=== PATIENT | female | born 1950 | race Caucasian/White ===

== ENCOUNTER → 2018-03-22 15:10 | Outpatient (CLI) | payer OTHER, SELFPAY ==
--- NOTE | 2018-03-22 15:12 | DI.MG.S_ITS ---
BILATERAL DIGITAL SCREENING MAMMOGRAM 3D/2D WITH CAD: 03/22/2018 CLINICAL: Routine screening. Comparison is made to exams dated: 08/26/2013 mammogram and 08/03/2012 mammogram - [facility]. There are scattered fibroglandular elements in both breasts. Current study was also evaluated with a Computer Aided Detection (CAD) system. No significant masses, calcifications, or other findings are seen in either breast. There has been no significant interval change. IMPRESSION: NEGATIVE There is no mammographic evidence of malignancy. A 1 year screening mammogram is recommended. This exam was interpreted at Station ID: [id number]. NOTE: For mammograms, a report in lay terms will be sent to the patient. Approximately 15% of breast malignancies will not be visualized mammographically. In the management of a palpable breast mass, a negative mammogram must not discourage biopsy of a clinically suspicious lesion. Electronically Signed By: Zach leal/javier:03/22/2018 16:34:13 letter sent: Normal Exam ACR BI-RADS Category 1: Negative [id number]
== END ==
PROVIDERS: PCP Physician Assistant; Visit Provider Physician Assistant
DX: Z12.31 Encounter for screening mammogram for malignant neoplasm of breast (principal)
CPT/HCPCS: 77063; 77067

== ENCOUNTER → 2018-05-14 10:21 | Outpatient (CLI) | payer OTHER, SELFPAY ==
[2018-05-14 10:48] LABS: Add Manual Diff / Slide Review NO; Basophils Percent Auto 0.9 % (0-2); Eosinophils Percent Auto 0.7 % (2-4); Hemoglobin 13.7 g/dL (12.0-16.0); Lymphocytes Percent Auto 46.8 % (25-40); Mean Corpuscular HGB Conc 34.4 % (30-36); Mean Corpuscular Volume 87.4 fL (80-100); Monocytes Percent Auto 8.8 % (3-14); Neutrophils Absolute Auto 1100 /uL (3000-5900); Neutrophils Percent Auto 42.8 % (50-75); Platelet Count 210 X10^3/uL (150-400); Red Blood Cell Count 4.57 X10^6/uL (4.0-5.2); Red Cell Distribution Width 13.3 % (11.6-14.8); White Blood Cell Count 2.6 X10^3/uL (4.5-11.0)
[2018-05-14 11:24] LABS: Alanine Aminotransferase 15 IU/L (9-52); Albumin 4.4 g/dL (3.5-5.0); Albumin Globulin Ratio 1.6 (1.0-2.8); Alkaline Phosphatase 74 U/L (38-126); Aspartate Aminotransferase 21 IU/L (14-36); BUN Creatinine Ratio 18.6 (6-22); Bilirubin Total 0.9 mg/dL (0.2-1.3); Blood Urea Nitrogen 13 mg/dL (7-17); Calcium 9.6 mg/dL (8.4-10.2); Carbon Dioxide 28 mmol/L (22-32); Chloride 105 mmol/L (98-107); Estimated Glomerular Filt Rate > 60.0 mL/min (>60); Globulin 2.8 g/dL (1.7-4.1); Glucose 104 mg/dL (80-110); HEMOLYSIS < 15 (0-50); Potassium 4.2 mmol/L (3.4-5.1); Sodium 144 mmol/L (137-145); Total Protein 7.2 g/dL (6.3-8.2)
[2018-05-14 11:25] LABS: C-Reactive Protein Quant < 0.5 mg/dL (<1.0)
[2018-05-14 11:30] LABS: Free T3, Triiodothyronine Free 6.35 pg/mL (2.77-5.27); Free T4, Direct Thyroxine 0.93 ng/dL (0.78-2.19)
[2018-05-14 11:43] LABS: Thyroid Stimulating Hormone < 0.02 uIU/mL (0.47-4.68)
[2018-05-14 11:44] LABS: TSH w/ Reflex to FT4 < 0.02 uIU/mL (0.47-4.68)
[2018-05-15 15:02] LABS: Thyroid Peroxidase Antibodies < 1 IU/mL (< 9)
== END ==
PROVIDERS: PCP Physician Assistant; Visit Provider Nurse Practitioner Family
DX: E07.9 Disorder of thyroid, unspecified (principal)
CPT/HCPCS: 36415; 80053; 84439; 84443; 84481; 85025; 86140; 86376

== ENCOUNTER 2018-07-19 10:26 | Emergency (ER) | payer OTHER, SELFPAY ==
[2018-07-19 10:30] VITALS: PULSE 88; RESP 18; O2SAT 99
[2018-07-19 11:31] LABS: Add Manual Diff / Slide Review NO; Basophils Percent Auto 1.2 % (0-2); Eosinophils Percent Auto 0.6 % (2-4); Hematocrit 40.6 % (36-46); Hemoglobin 13.7 g/dL (12.0-16.0); Lymphocytes Percent Auto 49.7 % (25-40); Mean Corpuscular HGB Conc 33.7 % (30-36); Mean Corpuscular Hemoglobin 29.4 PG (26-34); Mean Corpuscular Volume 87.2 fL (80-100); Monocytes Percent Auto 7.8 % (3-14); Neutrophils Absolute Auto 1300 /uL (3000-5900); Neutrophils Percent Auto 40.7 % (50-75); Platelet Count 209 X10^3/uL (150-400); Red Blood Cell Count 4.66 X10^6/uL (4.0-5.2); Red Cell Distribution Width 13.9 % (11.6-14.8); White Blood Cell Count 3.2 X10^3/uL (4.5-11.0)
[2018-07-19] MEDS: SODIUM CHLORIDE 0.9% 1,000 ML 150 ML IV (11:41)
[2018-07-19 11:46] LABS: Alanine Aminotransferase 20 IU/L (9-52); Albumin 4.6 g/dL (3.5-5.0); Albumin Globulin Ratio 1.7 (1.0-2.8); Alkaline Phosphatase 81 U/L (38-126); Aspartate Aminotransferase 22 IU/L (14-36); BUN Creatinine Ratio 22.9 (6-22); Bilirubin Total 0.7 mg/dL (0.2-1.3); Blood Urea Nitrogen 16 mg/dL (7-17); Calcium 9.3 mg/dL (8.4-10.2); Carbon Dioxide 27 mmol/L (22-32); Chloride 104 mmol/L (98-107); Estimated Glomerular Filt Rate > 60.0 mL/min (>60); Globulin 2.7 g/dL (1.7-4.1); Glucose 99 mg/dL (80-110); HEMOLYSIS < 15 (0-50); Lipase 87 U/L (23-300); Sodium 142 mmol/L (137-145); Total Protein 7.3 g/dL (6.3-8.2)
[2018-07-19 11:51] LABS: Appearance Urine UA TURBID; Bilirubin Urine UA NEGATIVE (NEGATIVE); Color Urine UA RED; Glucose Urine UA TRACE g/dL (Normal); Ketones Urine UA TRACE (NEGATIVE); Leukocyte Esterase Urine UA TRACE (NEGATIVE); Nitrite Urine UA POSITIVE (Negative); Occult Blood Urine UA 3+ (Negative); Protein Urine UA 2+ (Negative); Specific Gravity Urine UA 1.015 (1.000-1.035)
[2018-07-19 12:00] LABS: Bacteria Urine Many (>30); Culture Indicated Urine Specimen Cultured; RBC Urine 30-100/HPF (0-5/HPF); WBC Urine 30-100/HPF (0-5/HPF)
--- NOTE | 2018-07-19 12:06 | ED.ABDPAIN ---
HPI - Abdominal Pain General Chief Complaint: Abdominal Pain Stated Complaint: pain in bladder/cervix Time Seen by Provider: 07/19/18 12:04 Source: patient Mode of arrival: ambulatory Limitations: no limitations History of Present Illness HPI narrative: Patient is a 68-year-old female who presents with right flank pain and hematuria. It started today it comes in waves sharp and stabbing. No history of kidney stone. She denies nausea or fever. No urinary frequency. Related Data Home Medications Medication Instructions Recorded Confirmed cholecalciferol (vitamin D3) 5,000 unit PO DAILY 07/19/18 07/19/18 [Vitamin D3] lorazepam 0.5 mg PO DAILY 07/19/18 07/19/18 multivitamin 1 tab PO DAILY 07/19/18 07/19/18 paroxetine HCl 37.5 mg PO DAILY 07/19/18 07/19/18 Previous Rx's Medication Instructions Recorded thyroid (pork) 90 mg tablet 90 mg PO DAILY #30 tab 07/07/18 hydrocodone-acetaminophen [Independence] 1 tab PO Q6H PRN #10 tab 07/19/18 ondansetron 4 mg PO Q6-8H PRN #10 tab 07/19/18 sulfamethoxazole-trimethoprim 1 tab PO BID #14 tab 07/19/18 [Bactrim DS] Allergies Allergy/AdvReac Type Severity Reaction Status Date / Time simvastatin [SIMVASTATIN] Allergy Unknown nuscle Verified 07/19/18 10:30 aches Review of Systems Review of Systems GENERAL: Denies chills, fatigue, malaise, fever, sweats, travel HEENT: Denies sinus pain, ear pain, sore throat, difficulty swallowing, neck pain RESPIRATORY: Denies dyspnea, cough, wheezing, hemoptysis, sputum. CARDIOVASCULAR: Denies chest pain, palpitations, orthopnea, edema GASTROINTESTINAL: See HPI : See HPI MUSCULOSKELETAL: Denies weakness, joint pain, or bony pain SKIN: No rash, no erythema, no pruritus NEUROLOGIC: Denies weakness, dizziness, headache, numbness, change in speech, confusion PSYCHIATRIC: No concerning psychosocial issues. 12 point review of systems is negative except for those stated above and HPI PFSH Medical History Hypothyroid (Acute) Social History Smoking Status: Never smoker alcohol intake: current (occasionally) Exam Initial Vital Signs Initial Vital Signs: Vital Signs Pulse Rate 88 07/19/18 10:30 Respiratory Rate 18 07/19/18 10:30 Pulse Oximetry 99 07/19/18 10:30 GENERAL: Appears in pain holding right flank HEENT: Head atraumatic,EOMI, pupils reactive CARDIOVASCULAR: Regular rate and rhythm without murmurs, rubs or gallops. RESPIRATORY: Breath sounds equal bilaterally, no wheezes rales or rhonchi. ABDOMEN: Soft, nontender. Normoactive bowel sounds all 4 quadrants. No guarding or rebound. : CVA tenderness on the right mild EXTREMITIES: Normal range of motion, no clubbing or edema. Neurovascularly intact NEUROLOGICAL: Alert and oriented x4.Normal gait and speech. Cranial nerves II through XII grossly intact. SKIN: Warm, dry, no laceration, no petechiae, no rashes or lesions. Course Orders Ordered: ED Orders 07/19/18 12:22 CT kidney ureter bladder (KUB) Stat Discontinued Medications Sodium Chloride (Normal Saline 0.9%) 1,000 mls @ 150 mls/hr IV CONT RJ Last Infusion: 07/19/18 14:27 Dose: 0 mls/hr Admin: 07/19/18 11:41 Dose: 150 mls/hr Ketorolac Tromethamine (Toradol) 30 mg IV NOW ONE Stop: 07/19/18 12:05 Last Admin: 07/19/18 12:07 Dose: 30 mg Morphine Sulfate (Morphine) 2 mg IV NOW ONE Stop: 07/19/18 13:40 Last Admin: 07/19/18 14:14 Dose: Not Given Vital Signs - 8 hr 07/19/18 13:19 07/19/18 14:26 Pulse Rate 62 62 Respiratory Rate 13 Blood Pressure 114/76 Blood Pressure [Left Arm] 115/56 L Pulse Oximetry 97 100 MDM - Abdominal Pain Lab Data Attestation: I reviewed the patient's lab results. Result diagrams: 07/19/18 11:23 07/19/18 11:23 Lab Results 07/19/18 07/19/18 07/19/18 Range/Units 11:23 11:23 11:26 WBC 3.2 L (4.5-11.0) X10^3/uL RBC 4.66 (4.0-5.2) X10^6/uL Hgb 13.7 (12.0-16.0) g/dL Hct 40.6 (36-46) % MCV 87.2 (80-100) fL MCH 29.4 (26-34) PG MCHC 33.7 (30-36) % RDW 13.9 (11.6-14.8) % Plt Count 209 (150-400) X10^3/uL Neut % (Auto) 40.7 L (50-75) % Lymph % (Auto) 49.7 H (25-40) % Sheridan % (Auto) 7.8 (3-14) % Eos % (Auto) 0.6 L (2-4) % Baso % (Auto) 1.2 (0-2) % Neut # (Auto) 1300 L (8863-1671) /uL Sodium 142 (137-145) mmol/L Potassium 4.0 (3.4-5.1) mmol/L Chloride 104 (98-107) mmol/L Carbon Dioxide 27 (22-32) mmol/L BUN 16 (7-17) mg/dL Creatinine 0.70 (0.52-1.04) mg/dL Estimated GFR > 60.0 (>60) mL/min BUN/Creatinine Ratio 22.9 H (6-22) Glucose 99 (80-110) mg/dL Calcium 9.3 (8.4-10.2) mg/dL Total Bilirubin 0.7 (0.2-1.3) mg/dL AST 22 (14-36) IU/L ALT 20 (9-52) IU/L Alkaline Phosphatase 81 (38-126) U/L Total Protein 7.3 (6.3-8.2) g/dL Albumin 4.6 (3.5-5.0) g/dL Globulin 2.7 (1.7-4.1) g/dL Albumin/Globulin Ratio 1.7 (1.0-2.8) Lipase 87 (23-300) U/L Urine Color Red Urine Appearance Turbid Urine pH 7.0 (4.5-8.0) Ur Specific Kellogg 1.015 (1.000-1.035) Urine Protein 2+ H (Negative) Urine Glucose (UA) Trace (Normal) g/dL Urine Ketones Trace H (NEGATIVE) Urine Occult Blood 3+ H (Negative) Urine Nitrate Positive H (Negative) Urine Bilirubin Negative (NEGATIVE) Urine Urobilinogen 1.0 (0.2) E.U./dL Ur Leukocyte Esterase Trace H (NEGATIVE) Urine RBC 30-100/hpf H (0-5/HPF) Urine WBC 30-100/hpf H (0-5/HPF) Urine Bacteria Many (>30) H (None) Ur Culture Indicated? Specimen cultured Micro UA Comment Not Reportable Imaging Data CT scan - abdomen: Radiologist's impression: PROCEDURE: CT KIDNEY URETER BLADDER (KUB) INDICATIONS: right flank pain TECHNIQUE: Noncontrast 5 mm thick sections acquired from the diaphragms to the symphysis. 5 mm thick coronal and sagittal reformats were then performed. For radiation dose reduction, the following was used: automated exposure control, adjustment of mA and/or kV according to patient size. COMPARISON: [facility], CT, THORAX WITH CONTRAST, 05/20/2016, 8:37. Outside Facility, , CT THORAX W/O CONTRAST, 11/20/2015, 16:25. FINDINGS: Image quality: Diagnostic. Lung bases: Mild scar versus atelectasis within the lingula is less prominent on the current study, compared to the previous exam. Otherwise, the image lung bases are clear. Heart is normal in size without a pericardial effusion. Urinary system: There is a 3 x 3 x 4 mm calculus present within the distal right ureter at the vesicoureteral junction (image 80, series 2). There is mild to moderate hydronephrosis and hydroureter on the right. No additional nonobstructing renal or ureteral calculi are appreciated. The bladder is decompressed and subsequently not well evaluated. However, there is thickening of the urinary bladder wall. Other solid organs: Liver is normal in size. Gallbladder does not appear to be enlarged or inflamed. Pancreas is normal in contours. Spleen is normal in size. No adrenal nodules. Peritoneum and bowel: There is mild prominence of the wall of the distal esophagus. The stomach and duodenum are unremarkable. The small bowel loops do not appear to be dilated. A moderate to large amount of residual stool seen within the colon. No free fluid or loculated fluid collection is seen within the abdomen. There may be a very small fat containing periumbilical hernia. Nodes and vessels: No retroperitoneal or mesenteric adenopathy by size criteria. Aorta and inferior vena cava are normal in caliber. Abdominal wall: No ventral hernias. Other pelvic soft tissues: There is a large probable partly septated cyst identified with questionable mural nodularity involving the left adnexa, which measures 10.4 x 5.8 x 7.7 cm. Peripheral calcifications are present. A small cyst on the right ovary is evident. The uterus is not enlarged. There appears to be fat containing left inguinal hernia. No free fluid is evident. No adenopathy is identified. Age-appropriate degenerative changes of the mid spine and pelvic drains are present. Bones: No suspicious bony lesions. No vertebral body compression fractures. IMPRESSION: 1. 4 mm, at least partially obstructing distal right ureteral calculus with associated mild to moderate hydroureter and hydronephrosis. 2. Large left adnexal cystic mass suspicious for ovarian neoplasm. Pelvic ultrasound is recommended for further evaluation. 3. Probable colonic constipation. 4. Small fat containing left in the hernia. Dictated by: Rei Nur M.D. on 07/19/2018 at 12:07 MDM Narrative Medical decision making narrative: Patient's pain improved after Toradol. CT confirms 4 mm stone. Also does show a concerning all left ovarian cyst. She has no pain on the left lower quadrant. A I discussed findings of CT with her and her and recommended outpatient follow-up. At this time deal with acute kidney stone. Morphine does seem to help more with her pain. Discharge Plan Departure Patient Disposition: Home Clinical Impression: Kidney stone on right side, UTI (urinary tract infection) Discharge Date/Time: 07/19/18 14:27 Interventions: ED Discharge Assessment Last Done: 07/19/18 14:26 Instructions: DI for Kidney Stones Activity Restrictions/Additional Instructions: YOU HAVE A LARGE LEFT OVARIAN MASS WHICH NEEDS FURTHER EVALUATION SUCH ULTRASOUND SOON POSSIBLE *Increase fluid intake *Call primary care provider office tomorrow, to schedule follow-up appointment. You may require urology referral Strain urine, try to catch stone -If you should have fever, or pain is uncontrolled with medication at home or any other concerning symptoms return to ER for further evaluation MEDICATIONS: FAX TO [facility] Take Motrin 800 mg every 8 hours as needed for pain Take Independence every 6 hours if needed for severe pain Take Zofran every 4-6 hours if needed for nausea Take Bactrim 1 tablet twice a day for 7 days for bladder infection CONTROLLED SUBSTANCE DISCHARGE (Narcotoic/benzodiazepine) 1. You have been prescribed narcotic medications, it does have acetaminophen/Tylenol/paracetamol in it so do not take extra Tylenol or Tylenol containing products 2. Please understand that we cannot provide further refills of narcotics, benzodiazepines or controlled substances through the ED and her pain management will need to be through your provider. 3. While on these medications you cannot drive or operate heavy machinery. 4. You cannot sign legal documents or perform any duties such as this. 5. As long as you're taking opiate pain medications he should also be taking a stool softener such as Colace, Dulcolax, MiraLAX or prune juice, to help avoid constipation. Prescriptions: New hydrocodone-acetaminophen [Independence] 5-325 mg tablet 1 tab PO Q6H PRN (Reason: pain) Qty: 10 RF: 0 sulfamethoxazole-trimethoprim [Bactrim DS] 800-160 mg tablet 1 tab PO BID Qty: 14 RF: 0 ondansetron 4 mg tablet,disintegrating 4 mg PO Q6-8H PRN (Reason: nausea and vomiting) Qty: 10 RF: 0 No Action thyroid (pork) [DENTAL PRACTITIONER Thyroid] 90 mg tablet 90 mg PO DAILY Qty: 30 RF: 0 lorazepam 0.5 mg tablet 0.5 mg PO DAILY RF: 0 paroxetine HCl 37.5 mg tablet extended release 24 hr 37.5 mg PO DAILY RF: 0 multivitamin Tablet 1 tab PO DAILY RF: 0 cholecalciferol (vitamin D3) [Vitamin D3] 5,000 unit Tablet 5,000 unit PO DAILY RF: 0 Referrals: Paula Melvin PA-C [Primary Care Provider] -
[2018-07-19] MEDS: KETOROLAC 60 MG/2 ML VIAL 30 MG IV (12:07)
[2018-07-19 12:15] VITALS: BP 124/76; PULSE 65; RESP 12; TEMP 36.3; O2SAT 98
--- NOTE | 2018-07-19 12:22 | DI.CT.S_ITS ---
PROCEDURE: CT KIDNEY URETER BLADDER (KUB) INDICATIONS: right flank pain TECHNIQUE: Noncontrast 5 mm thick sections acquired from the diaphragms to the symphysis. 5 mm thick coronal and sagittal reformats were then performed. For radiation dose reduction, the following was used: automated exposure control, adjustment of mA and/or kV according to patient size. COMPARISON: [facility], CT, THORAX WITH CONTRAST, 05/20/2016, 8:37. Outside Facility, , CT THORAX W/O CONTRAST, 11/20/2015, 16:25. FINDINGS: Image quality: Diagnostic. Lung bases: Mild scar versus atelectasis within the lingula is less prominent on the current study, compared to the previous exam. Otherwise, the image lung bases are clear. Heart is normal in size without a pericardial effusion. Urinary system: There is a 3 x 3 x 4 mm calculus present within the distal right ureter at the vesicoureteral junction (image 80, series 2). There is mild to moderate hydronephrosis and hydroureter on the right. No additional nonobstructing renal or ureteral calculi are appreciated. The bladder is decompressed and subsequently not well evaluated. However, there is thickening of the urinary bladder wall. Other solid organs: Liver is normal in size. Gallbladder does not appear to be enlarged or inflamed. Pancreas is normal in contours. Spleen is normal in size. No adrenal nodules. Peritoneum and bowel: There is mild prominence of the wall of the distal esophagus. The stomach and duodenum are unremarkable. The small bowel loops do not appear to be dilated. A moderate to large amount of residual stool seen within the colon. No free fluid or loculated fluid collection is seen within the abdomen. There may be a very small fat containing periumbilical hernia. Nodes and vessels: No retroperitoneal or mesenteric adenopathy by size criteria. Aorta and inferior vena cava are normal in caliber. Abdominal wall: No ventral hernias. Other pelvic soft tissues: There is a large probable partly septated cyst identified with questionable mural nodularity involving the left adnexa, which measures 10.4 x 5.8 x 7.7 cm. Peripheral calcifications are present. A small cyst on the right ovary is evident. The uterus is not enlarged. There appears to be fat containing left inguinal hernia. No free fluid is evident. No adenopathy is identified. Age-appropriate degenerative changes of the mid spine and pelvic drains are present. Bones: No suspicious bony lesions. No vertebral body compression fractures. IMPRESSION: 1. 4 mm, at least partially obstructing distal right ureteral calculus with associated mild to moderate hydroureter and hydronephrosis. 2. Large left adnexal cystic mass suspicious for ovarian neoplasm. Pelvic ultrasound is recommended for further evaluation. 3. Probable colonic constipation. 4. Small fat containing left in the hernia. Dictated by: Rei Nur M.D. on 07/19/2018 at 12:07 Approved by: Rei Nur M.D. on 07/19/2018 at 12:13
[2018-07-19 13:19] VITALS: BP 115/56; PULSE 62; O2SAT 97
[2018-07-19 14:26] VITALS: BP 114/76; PULSE 62; RESP 13; O2SAT 100
== END 2018-07-19 14:27 | disposition home or self-care (01) ==
PROVIDERS: Emergency Provider Emergency Medicine; PCP Physician Assistant
DX: N20.0 Calculus of kidney (principal); N39.0 Urinary tract infection, site not specified
CPT/HCPCS: 36591; 74176; 80053; 81001; 83690; 85025; 87086; 96361; 96374; 99283; 99284; J1885

== ENCOUNTER → 2018-07-22 14:11 | Outpatient (CLI) | payer OTHER, SELFPAY ==
[2018-07-22 16:53] LABS: Cancer Antigen 125 7 U/mL (0-35)
== END ==
PROVIDERS: PCP Physician Assistant; Visit Provider Physician Assistant
DX: N83.202 Unspecified ovarian cyst, left side (principal); E03.9 Hypothyroidism, unspecified; R79.89 Other specified abnormal findings of blood chemistry
CPT/HCPCS: 36415; 84443; 86304

== ENCOUNTER → 2018-08-03 07:17 | Outpatient (CLI) | payer OTHER, SELFPAY ==
--- NOTE | 2018-08-03 07:19 | DI.US.S_ITS ---
PROCEDURE: US PELVIC COMPLETE INDICATIONS: LEFT OVARIAN CYST TECHNIQUE: Real-time scanning was performed of the pelvic organs, with image documentation. Additional endovaginal scanning was necessary due to incomplete visualization of the adnexal and endometrial structures by transabdominal scanning. COMPARISON: [facility], CT, CT KIDNEY URETER BLADDER (KUB), 07/19/2018, 12:35. FINDINGS: Transabdominal scanning: Limited scanning through the kidneys shows no hydronephrosis. No pathologic free abdominal or pelvic fluid. Endovaginal scanning: Uterus: Uterus is normal in size at 5.5 x 2.8 x 4.0 cm. The endometrium measures 0.3 cm in combined thickness. Ovaries: Right ovary measures 1.9 x 2.2 x 1.9 cm and the left ovary measures 10.8 x 5.5 x 8.6 cm. There is a large anechoic thin-walled cyst in the left ovary measuring up to 10.6 x 5.1 x 7.8 cm. No definite solid nodular component or internal vascularity identified on the current study. Within the right ovary, there is also a thin-walled anechoic cyst measuring up to 1.9 x 1.5 x 1.6 cm. No internal solid component or vascularity demonstrated. IMPRESSION: 1. Bilateral ovarian cysts including a large left ovarian cyst measuring up to 10.6 cm. Given the size of the lesion and patient age, the findings are suspicious for a possible cystic neoplasm such as a cystic or mucinous cystadenoma/cystadenocarcinoma. Recommend further evaluation with a pelvic protocol MRI to evaluate for solid enhancing components. Dictated by: Destin Hopson M.D. on 08/03/2018 at 13:13 Approved by: Destin Hopson M.D. on 08/03/2018 at 13:19
== END ==
PROVIDERS: PCP Physician Assistant; Visit Provider Physician Assistant
DX: N83.202 Unspecified ovarian cyst, left side (principal); N83.201 Unspecified ovarian cyst, right side
CPT/HCPCS: 76830; 76856

== ENCOUNTER → 2018-08-04 14:33 | Outpatient (CLI) | payer OTHER, SELFPAY ==
[2018-08-04 16:16] LABS: Cancer Antigen 125 6 U/mL (0-35)
[2018-08-13 16:23] LABS: Human HE4 Antigen 34 pmol/L
== END ==
PROVIDERS: PCP Physician Assistant; Visit Provider Obstetrics & Gynecology
DX: N83.209 Unspecified ovarian cyst, unspecified side (principal); R93.89 Abnormal findings on diagnostic imaging of other specified body structures
CPT/HCPCS: 36415; 86304; 86305

== ENCOUNTER 2018-08-09 07:52 | Day surgery (SDC) | payer OTHER, SELFPAY ==
[2018-08-06 10:24] VITALS: BMI 24.7
[2018-08-09] VITALS (8 sets, daily range): BP systolic 82–103; BP diastolic 32–68; PULSE 56–70; RESP 7–16; TEMP 36.2–36.6; O2SAT 94–99; BMI 24.3
--- NOTE | 2018-08-09 | PATH_ITS ---
Specimen ID: [id number] Control ID: [id number] [facility] PATHOLOGY ONLY [address] [place] [address] Patient Details CHARITY ORTIZ : 1950 Age(y/m/d): Gender: F SSN: Specimen Details Date collected: 08/09/2018 0000 Local Date received: 08/10/2018 Date entered: 08/11/2018 Date reported: 08/11/2018 1807 ET Physician Details Ordering: Nereyda GREENFIELD Referring: ID: JEAN PIERRE Additional Information: Clinical Info: [id number] UPIN: [id number] Tests Ordered: Miscellaneous Fluid Cytology Clinician Provided ICD Code(s) & Clinical History: Diagnosis: (02) L OVARIAN FLUID NEGATIVE FOR MALIGNANT CELLS. BENIGN EPITHELIAL CELLS PRESENT. Pathologist Provided ICD Code(s): () N83.202 Clinician Provided Cytology Information: Source: L OVARIAN FLUID ACC: [id number] PID: [id number] Gross Description: () 60 CC, YELLOW, CLEAR /LCS Performed by () Tomas Maria, Tubing Machine Tender (ASCP) Electronically signed by () Javier Reeves MD, Pathologist NPI- [id number]
--- NOTE | 2018-08-09 | PATH_ITS ---
[facility] Accession Number: [id number] . 01 Material submitted: . PART A: LEFT OVARY AND TUBE PART B: RIGHT OVARY AND FALLOPIAN TUBE . 02 Diagnosis: A. Left Ovary and Fallopian Tube: Large benign serous cyst, ovary. Fallopian tube unremarkable. . B. Right Ovary and Fallopian Tube: Multiple benign serous cysts, ovary. Fallopian tube unremarkable. MRV/08/11/2018 . 02 Electronically signed: . Javier Reeves MD, Pathologist NPI- [id number] . 01 Gross description: . (A) Received in formalin, labeled left ovary + tube (attached), is an ovarian cyst (7.5 x 5.5 x 5.3 cm) with an attached fimbriated fallopian tube (length-6.3 cm, diameter-0.3 cm). The cyst has yellow-pink smooth and shiny serosa and contains clear yellow watery fluid. The lining is smooth and flat with no excrescences identified. The fallopian tube has marcos-pink smooth and shiny serosa and a marcos unremarkable lumen. Section code: (A1, A2) cyst, technical service representative serial sections; (A3) fallopian tube, technical service representative serial sections; (A4) fimbria, bivalved, entirely submitted. (B) Received in formalin, labeled right ovary + tube (detached), is an ovary (3.0 x 2.0 x 1.8 cm) and a detached fimbriated fallopian tube (length-4.8 cm, diameter-0.3 cm). The ovary has pretty-yellow smooth and flat serosa and a marcos-yellow solid cystic parenchyma with corpus albicans identified. The cavities (0.1 cm-1.7 cm) contain clear colorless fluid. The linings are smooth and flat with no excrescences identified. The fallopian tube has pretty-pink smooth and shiny serosa and a marcos unremarkable lumen. Section code: (B1) ovary, technical service representative serial sections; (B2) fallopian tube, technical service representative serial sections; (B3) fimbria, bivalved, entirely submitted. (:[id number]) . Note: Per the requisition, this is a split sample with left ovarian fluid sent to cytology for analysis. (:[id number]) /[facility] . 02 Pathologist provided ICD-10: N83.202, N83.202, N83.201 . 02 CPT . 484446, 852732 Performed at: 01 [facility] [address] [facility], [place], [place] [id number] MD Destin Vasquez MD Phone: [phone] Performed at: [facility] [address] [place], [place] [id number] MD Jesica Marshall MD Phone: [phone]
[2018-08-09] MEDS: LACTATED RINGERS 1,000 ML 42 ML IV ×2 (08:30→10:08)
--- NOTE | 2018-08-09 09:27 | SUR.OPER ---
Lithotomy on padded OR bed, head on pillow, arms secured on padded arm boards at <90 degrees abduction. Legs secured in padded yellow fins stirrups.
[2018-08-09] MEDS: BUPIVACAINE 0.5% W/ EPI (PF) VIAL 30 ML INJ (10:05)
[2018-08-09] MEDS: fentaNYL 100 MCG/2 ML INJ 50 MCG IV ×2 (10:28→10:39)
--- NOTE | 2018-08-09 10:31 | PM.PREOP ---
Pre-operative Note Interval Note Pre-op Check: Yes History & Physical exam performed today by Physician Changes: No
[2018-08-09] MEDS: OXYCODONE/ACETAMINOPHEN 5/325 TABLET 1 TAB PO (10:58)
--- NOTE | 2018-08-09 11:07 | SUR.PHASEII ---
Call light within reach. Percocet RX given to spouse, spouse left for the pharmacy. VS stable. Call light within reach.
--- NOTE | 2018-08-09 12:15 | SUR.PHASEII ---
pt assisted to br to void, urine light pink in color. pt stated she was ready to go, assisted to dress and pt left in stable condition. small amount of bleeding on thomas pad.
--- NOTE | 2018-09-03 16:28 | P.HP_ITS ---
History of Present Illness Date Patient Seen: 08/09/18 Time Patient Seen: 09:30 Chief complaint: [id number] Narrative: Patient is a 68-year-old with bilateral ovarian cysts Left ovary with the a 12 cm simple cyst. Patient History Medical History Ovarian cyst (Acute 06/2018) Anxiety (Chronic 1996) Depression (Chronic ~1997) Hypothyroid (Chronic ~2017) Neutropenia (Chronic 1998) Osteopenia (Chronic 1999) PTSD (post-traumatic stress disorder) (Chronic 1996) Abnormal CXR (chest x-ray) (Resolved 2015) Abnormal Pap smear of cervix (Resolved 1981) Chicken pox (Resolved) Kidney stones (Resolved 06/2018) Measles (Resolved) Mumps (Resolved) Right wrist fracture (Resolved 2014) Rubella (Resolved) Surgical History Anesthesia (Resolved) History of breast biopsy (Resolved) Status post wrist surgery (Resolved 10/2014) Family & Social History Social History: household members spouse Tobacco & Substance use: Smoking Status Never smoker alcohol intake current Substance Use Type does not use Meds Home Medications Medication Instructions Recorded Confirmed Type cholecalciferol (vitamin D3) 5,000 unit PO DAILY 07/19/18 08/31/18 History [Vitamin D3] multivitamin 1 tab PO DAILY 07/19/18 08/31/18 History paroxetine HCl 37.5 mg PO DAILY 07/19/18 08/31/18 History lorazepam 0.5 mg tablet 0.5 mg PO ONCE PRN tab 07/21/18 08/31/18 History thyroid (pork) 90 mg tablet 90 mg PO DAILY #30 tab 08/13/18 08/31/18 Rx Allergies Allergy/AdvReac Type Severity Reaction Status Date / Time simvastatin [SIMVASTATIN] Allergy Unknown nuscle Verified 08/31/18 15:38 aches Exam Vital Signs (past 8 hours): Oxygen Delivery Method Room Air Oxygen Flow Rate 4 Narrative Exam Narrative: HEENT: No thyromegaly, no anterior cervical or supraclavicular lymphadenopathy. Lungs:Clear to auscultation bilaterally, no wheezes. Cardiovascular: Regular rate and rhythm, no murmurs, rubs, or gallops. Abdomen: No scars. No hepatosplenomegaly. No masses palpable. External genitalia: Normal Vagina: Normal Cervix: Normal Bimanual exam: 6 Week size uterus. Mobile. Rectal: No masses. Assessment & Plan (1) Bilateral ovarian cysts: Current visit: No Status: Acute Plan: Assessment/Plan Narrative: Assessment: 68-year-old with bilateral ovarian cysts Left ovarian cyst 12 cm Plan: Laparoscopic bilateral salpingo-oophorectomy The risks, benefits, and alternatives to the procedure were explained to the patient. The risks including bleeding, infection, injury to the bowel, bladder , or ureters. She understands these risks and agrees to proceed . A full PAR- Q was held and consent form was signed.
--- NOTE | 2018-09-03 16:28 | PM.GYNOP.1 ---
Operative Date/Time/Diagnoses Date of procedure: 08/09/18 Time of procedure: 12:00 Pre-op diagnosis: Bilateral ovarian cyst Post-op diagnosis: same Procedure: Procedures Operation Date: 08/09/18 09:30 Actual Procedures Side Surgeon p Laparoscopic Salpingoophorectomy Bilateral Marli Ervin MD Indications: Bilateral ovarian cyst Surgeon: Marli Ervin Anesthesia Type: General Operative Notes Findings: 6 week size anteverted uterus 12 cm left ovarian cyst Right ovary with small cyst and papillations Normal tubes, appendix, liver, and gallbladder Closure Type: primary Specimen(s): left tube & ovary and right tube & ovary Estimated blood loss (mL): 5 Blood products transfused: none Procedure in detail: After informed consent was obtained, the patient was taken to the operating room where she was placed in the dorsal supine position. After adequate general endotracheal anesthesia was achieved, she was placed in the dorsal lithotomy position, and prepped and draped in the usual sterile fashion. A time-out was performed. A bivalve speculum was placed into the vagina and the anterior lip of the cervix grasped with a single-tooth tenaculum. The cervical os was sequentially dilated until the Zumi uterine manipulator could pass easily into the endometrial cavity. Single-tooth tenaculum was removed from the anterior lip of the cervix. The bivalve speculum was removed from the vagina. Attention was then turned to the abdomen where 6 cc of 0.5% Marcaine with epinephrine were injected in the umbilical fold. A 5 mm incision was made. The Veress needle was placed into the peritoneal cavity, and its placement confirmed by aspiration and drop test. The abdominal cavity was insufflated with 3.2 L of CO2. The Veress needle was removed and a 5 mm trocar was placed without difficulty. 3 other incisions were made, 2 midway between the pubic symphysis and umbilicus, 4 cm lateral to the midline. These were made after 6 cc of 0.5% Marcaine with epinephrine were injected and 5 mm incisions were made. Two 5 mm trocars were placed under direct visualization. A 4th incision was made after 6 cc of 0.5% Marcaine with epinephrine was injected just above the pubic symphysis. A 12 mm incision was made. A 12 mm trocar was placed under direct visualization. The right tube and ovary were grasped with an atraumatic grasper. Using the PlasmaKinetic with settings of 40 w, the infundibulopelvic ligament on the right side was cauterized and cut all the way down to the cornua of the uterus. Hemostasis was achieved. This was repeated on the patient's left side. A large and a bled was placed through the suprapubic incision, after the trocar was removed. The tubes and ovaries were placed into the bag and the edges of the bag were brought up through the skin. Using a spinal needle with a 60 cc syringe, the left ovary was decompressed and the fluid sent for cytology. The tubes and ovaries were then brought up through the skin inside the bag. The pelvis was copiously irrigated with warm normal saline. There was no bleeding noted. All of the trocars and instruments were removed from the peritoneal cavity. The suprapubic incision was closed on the fascia with 0 Vicryl in a running fashion. The subcutaneous layer was closed on the suprapubic incision using 2 simple interrupted sutures with 3 0 Vicryl. All of the incisions were closed with 4 0 undyed Vicryl in a subcuticular fashion. Steri-Strips, 2 x 2, and op site were placed. The Zumi uterine manipulator was removed from the uterus. Sponge, lap, and instrument counts were correct x2. The patient tolerated the procedure well, and was taken to PACU in stable condition. Complications: none Post-operative Condition: stable Disposition: PACU Plan for aftercare: Home after recovery
== END 2018-08-09 12:21 | disposition home or self-care (01) ==
PROVIDERS: PCP Physician Assistant; Visit Provider Obstetrics & Gynecology
PROC: 0UT24ZZ Resection of Bilateral Ovaries, Percutaneous Endoscopic Approach (ICD-10-PCS; CPT 58661; principal; 2018-08-09 09:30)
DX: N83.202 Unspecified ovarian cyst, left side (principal); N83.201 Unspecified ovarian cyst, right side; E03.9 Hypothyroidism, unspecified; D70.9 Neutropenia, unspecified; F41.9 Anxiety disorder, unspecified
CPT/HCPCS: 58661; J1100; J1885; J2250; J2405; J2704; J3010

== ENCOUNTER 2019-04-16 06:59 | Emergency (ER) | payer OTHER, SELFPAY ==
[2019-04-16 07:02] VITALS: BP 114/63; PULSE 73; RESP 16; TEMP 36.4; O2SAT 95; BMI 24.3
--- NOTE | 2019-04-16 07:27 | DI.CT.S_ITS ---
PROCEDURE: CT ABDOMEN PELVIS W CON INDICATIONS: pain in upper part, x 1 week getting worse TECHNIQUE: After the administration of oral and intravenous contrast, 5 mm thick sections acquired from the diaphragms to the symphysis. 5 mm thick coronal and sagittal reformats were performed. For radiation dose reduction, the following was used: automated exposure control, adjustment of mA and/or kV according to patient size. COMPARISON: [facility], CT, CT KIDNEY URETER BLADDER (KUB), 07/19/2018, 12:35. FINDINGS: Image quality: Diagnostic. ABDOMEN: Lung bases: Mild scarring versus atelectasis within the inferior margin of the lingula is incidentally noted. Otherwise, the imaged lung bases are clear. Heart size is normal. Solid organs: Liver is normal in size and enhancement. Gallbladder is not enlarged or inflamed. Biliary system is non-dilated. Pancreas enhances normally. Spleen is normal in size and enhancement. No adrenal nodules. Kidneys are normal in size and enhancement, without hydronephrosis. Peritoneum and bowel: Stomach is unremarkable. The duodenum and small bowel loops are nondilated. Moderate residual stool is seen within the colon. The appendix is not definitively identified. No inflammation within the right lower quadrant is evident. There may be areas of distal colonic diverticulosis. However, no adjacent pericolonic inflammation is identified. No free fluid, loculated fluid collection or free air is present. There is a very small fat containing periumbilical hernia, which is unchanged. Nodes and vessels: No retroperitoneal or mesenteric adenopathy. Aorta and inferior vena cava are normal in caliber. Bones: No acute fracture or suspicious osseous lesion is evident. There appears to be a small hemangioma involving the L4 vertebral body. PELVIS: Genitourinary: Thickening of the wall of the urinary bladder may be exaggerated by incomplete distention. Clinical correlation to exclude cystitis is recommended. The uterus is retroflexed. The previously seen large cystic structure within the left adnexa has resolved or been resected in the interim. Miscellaneous: No inguinal hernias or adenopathy. Bones: No suspicious bony lesions. No vertebral body compression fractures. IMPRESSION: 1. No acute abnormalities are evident within the abdomen or pelvis. 2. Prominence of the wall of the urinary bladder. Please correlate clinically to exclude cystitis. 3. Possible colonic constipation. No bowel obstruction. Dictated by: Rei Nur M.D. on 04/16/2019 at 7:28 Approved by: Rei Nur M.D. on 04/16/2019 at 7:33
--- NOTE | 2019-04-16 07:31 | ED.ABDPAIN ---
HPI - Abdominal Pain General Chief Complaint: Abdominal Pain Stated Complaint: upper rt abd pain Time Seen by Provider: 04/16/19 07:02 Source: patient Mode of arrival: ambulatory Limitations: no limitations History of Present Illness HPI narrative: Patient is a 68-year-old female presents with abdominal discomfort ongoing for about a week progressively getting worse over the last few days. Food and water seems to make it worse. She feels nauseous at times. Seems to radiate around to her back. It no vomiting no fevers she has been chilled and fatigued all week. Nothing makes it better or worse. MD complaint: abdominal pain Pain Consistency: constant Location: LUQ, RUQ and epigastric Severity: moderate Quality: cramping and fullness Radiation: back Exacerbating factors: eating Related Data Home Medications Medication Instructions Recorded Confirmed cholecalciferol (vitamin D3) 5,000 unit PO DAILY 07/19/18 08/31/18 [Vitamin D3] multivitamin 1 tab PO DAILY 07/19/18 08/31/18 paroxetine HCl 37.5 mg PO DAILY 07/19/18 08/31/18 lorazepam 0.5 mg tablet 0.5 mg PO ONCE PRN tab 07/21/18 08/31/18 Previous Rx's Medication Instructions Recorded thyroid (pork) 90 mg tablet 90 mg PO DAILY #90 tab 12/22/18 Allergies Allergy/AdvReac Type Severity Reaction Status Date / Time simvastatin [SIMVASTATIN] Allergy Unknown nuscle Verified 04/16/19 07:17 aches Review of Systems Review of Systems GENERAL: Denies chills, fatigue, malaise, fever, sweats, travel HEENT: Denies sinus pain, ear pain, sore throat, difficulty swallowing, neck pain RESPIRATORY: Denies dyspnea, cough, wheezing, hemoptysis, sputum. CARDIOVASCULAR: Denies chest pain, palpitations, orthopnea, edema GASTROINTESTINAL: See HPI : Denies dysuria, frequency, incontinence, hematuria, urinary retention, flank pain. MUSCULOSKELETAL: Denies weakness, joint pain, or bony pain SKIN: No rash, no erythema, no pruritus NEUROLOGIC: Denies weakness, dizziness, headache, numbness, change in speech, confusion PSYCHIATRIC: No concerning psychosocial issues. 12 point review of systems is negative except for those stated above and HPI [facility] Medical History Ovarian cyst (Acute 06/2018) Anxiety (Chronic 1996) Depression (Chronic ~1997) Hypothyroid (Chronic ~2017) Neutropenia (Chronic 1998) Osteopenia (Chronic 1999) PTSD (post-traumatic stress disorder) (Chronic 1996) Abnormal CXR (chest x-ray) (Resolved 2015) Abnormal Pap smear of cervix (Resolved 1981) Chicken pox (Resolved) Kidney stones (Resolved 06/2018) Measles (Resolved) Mumps (Resolved) Right wrist fracture (Resolved 2014) Rubella (Resolved) Surgical History Anesthesia (Resolved) History of breast biopsy (Resolved) Status post wrist surgery (Resolved 10/2014) Family History (Updated 08/30/18 @ 20:13 by Arabella Washburn) Father Congestive heart failure Grandfather [place] (myocardial infarction) Grandmother No problems noted. Mother Cancer Hypertension Hyperlipidemia Sister Hepatitis C History of IBS Grandfather No problems noted. Grandmother No problems noted. Social History household members: spouse Smoking Status: Never smoker second hand exposure: Yes (my dad smoked. I sometimes go in homes were clients smoke.) alcohol intake: current substance use type: does not use Family History Father Congestive heart failure Grandfather [place] (myocardial infarction) Grandmother No problems noted. Mother Cancer Hypertension Hyperlipidemia Sister Hepatitis C History of IBS Grandfather No problems noted. Grandmother No problems noted. Social History household members: spouse Smoking Status: Never smoker second hand exposure: Yes (my dad smoked. I sometimes go in homes were clients smoke.) alcohol intake: current substance use type: does not use Exam Initial Vital Signs Initial Vital Signs: Vital Signs Temperature 97.6 F 04/16/19 07:02 Pulse Rate 73 04/16/19 07:02 Respiratory Rate 16 04/16/19 07:02 Blood Pressure 114/63 04/16/19 07:02 Pulse Oximetry 95 04/16/19 07:02 GENERAL: Well-appearing, well-nourished and in no acute distress. HEENT: Head atraumatic,EOMI, pupils reactive, face symmetric, CARDIOVASCULAR: Regular rate and rhythm without murmurs, rubs or gallops. RESPIRATORY: Breath sounds equal bilaterally, no wheezes rales or rhonchi. ABDOMEN: Soft, tender gastric upper abdominal area. Negative Coronel sign. No guarding no rebound EXTREMITIES: Normal range of motion, no clubbing or edema. Neurovascularly intact NEUROLOGICAL: Alert and oriented x4.Normal gait and speech. Cranial nerves II through XII grossly intact. SKIN: Warm, dry, no laceration, no petechiae, no rashes or lesions. Course Orders Ordered: ED Orders 04/16/19 07:25 Complete Blood Count AUTO DIFF Stat Comprehensive Metabolic Panel Stat Lipase Stat 04/16/19 07:27 CT abdomen pelvis w con Stat 04/16/19 07:40 Urine Culture Stat Urine Microscopic Stat 04/16/19 08:38 US abdomen limited Stat Discontinued Medications Ketorolac Tromethamine (Toradol) 30 mg IV NOW ONE Stop: 04/16/19 08:58 Last Admin: 04/16/19 10:58 Dose: Not Given Vital Signs - 8 hr 04/16/19 07:02 04/16/19 08:59 04/16/19 09:39 Temperature 97.6 F Pulse Rate 73 62 63 Respiratory Rate 16 9 L 14 Blood Pressure 114/63 Blood Pressure [Right Arm] 109/52 L 101/50 L Pulse Oximetry 95 97 97 04/16/19 10:43 04/16/19 10:57 Temperature Pulse Rate 68 65 Respiratory Rate 14 14 Blood Pressure Blood Pressure [Right Arm] 104/47 L 103/60 Pulse Oximetry 98 96 MDM - Abdominal Pain Lab Data Attestation: I reviewed the patient's lab results. Result diagrams: 04/16/19 07:25 04/16/19 07:25 Lab Results 04/16/19 04/16/19 04/16/19 Range/Units 07:25 07:25 07:40 WBC 3.5 L (4.5-11.0) X10^3/uL RBC 4.93 (4.0-5.2) X10^6/uL Hgb 14.2 (12.0-16.0) g/dL Hct 42.1 (36-46) % MCV 85.4 (80-100) fL MCH 28.9 (26-34) PG MCHC 33.8 (30-36) % RDW 12.6 (11.6-14.8) % Plt Count 206 (150-400) X10^3/uL Neut % (Auto) 36.3 L (50-75) % Lymph % (Auto) 50.8 H (25-40) % Frederick % (Auto) 9.7 (3-14) % Eos % (Auto) 2.1 (2-4) % Baso % (Auto) 1.1 (0-2) % Neut # (Auto) 1300 L (2664-5596) /uL Lymph # (Auto) 1800 (8243-2115) /uL Frederick # (Auto) 300 (0-900) /uL Eos # (Auto) 100 (0-450) /uL Baso # (Auto) 0 (0-100) /uL Sodium 141 (137-145) mmol/L Potassium 3.8 (3.4-5.1) mmol/L Chloride 104 (98-107) mmol/L Carbon Dioxide 28 (22-32) mmol/L BUN 16 (7-17) mg/dL Creatinine 0.70 (0.52-1.04) mg/dL Estimated GFR > 60.0 (>60) mL/min BUN/Creatinine Ratio 22.9 H (6-22) Glucose 103 (80-110) mg/dL Calcium 9.9 (8.4-10.2) mg/dL Total Bilirubin 1.0 (0.2-1.3) mg/dL AST 17 (14-36) IU/L ALT 11 (9-52) IU/L Alkaline Phosphatase 69 (38-126) U/L Total Protein 7.4 (6.3-8.2) g/dL Albumin 4.5 (3.5-5.0) g/dL Globulin 2.9 (1.7-4.1) g/dL Albumin/Globulin Ratio 1.6 (1.0-2.8) Lipase 66 (23-300) U/L Urine RBC None seen (0-5/HPF) Urine WBC None seen (0-5/HPF) Urine Bacteria None seen (None) Ur Culture Indicated? Specimen cultured Micro UA Comment Microscopic normal Point of care testing: Urine Dip Bedside Urine Glucose Negative Bedside Urine Bilirubin - Negative Bedside Urine Ketone - Negative Urine Specific [place] 1.020 Bedside Urine Occult Blood - Negative Bedside Urine pH 6.0 Bedside Urine Protein - Negative Bedside Urine Urobilinogen - Negative Bedside Urine Nitrite - Negative Bedside Urine Leukocytes + 70 Esterase Imaging Data US - abdomen: Radiologist's impression: PROCEDURE: US ABDOMEN LIMITED INDICATIONS: RUQ PAIN TECHNIQUE: Real-time focused scanning was performed of the abdomen, with image documentation. COMPARISON: None. FINDINGS: Imaged portions of the liver are unremarkable with the exception of increased echogenicity when compared to the right kidney. No obvious liver lesions are evident right kidney is normal in size. There is no hydronephrosis. No shadowing nephrolithiasis or solid renal lesions are appreciated. The gallbladder is measuring within the upper limits of normal in size. There is no gallbladder wall thickening, pericholecystic fluid, or cholelithiasis. The common bile duct is enlarged and measures up to 8 mm in diameter. The pancreas is within normal limits. The abdominal aorta and inferior vena cava are grossly unremarkable. IMPRESSION: 1. No cholelithiasis or evidence of acute cholecystitis. 2. Nonspecific prominence of the common bile duct. If there is clinical concern for choledocholithiasis, MRCP may be helpful for further evaluation. 3. Probable hepatic steatosis. Please correlate clinically to exclude other chronic liver diseases. 4. Unremarkable right kidney. No hydronephrosis or shadowing nephrolithiasis. Dictated by: Rei Nur M.D. on 04/16/2019 at 9:19 CT scan - abdomen: Radiologist's impression: PROCEDURE: CT ABDOMEN PELVIS W CON INDICATIONS: pain in upper part, x 1 week getting worse TECHNIQUE: After the administration of oral and intravenous contrast, 5 mm thick sections acquired from the diaphragms to the symphysis. 5 mm thick coronal and sagittal reformats were performed. For radiation dose reduction, the following was used: automated exposure control, adjustment of mA and/or kV according to patient size. COMPARISON: [facility], CT, CT KIDNEY URETER BLADDER (KUB), 07/19/2018, 12:35. FINDINGS: Image quality: Diagnostic. ABDOMEN: Lung bases: Mild scarring versus atelectasis within the inferior margin of the lingula is incidentally noted. Otherwise, the imaged lung bases are clear. Heart size is normal. Solid organs: Liver is normal in size and enhancement. Gallbladder is not enlarged or inflamed. Biliary system is non-dilated. Pancreas enhances normally. Spleen is normal in size and enhancement. No adrenal nodules. Kidneys are normal in size and enhancement, without hydronephrosis. Peritoneum and bowel: Stomach is unremarkable. The duodenum and small bowel loops are nondilated. Moderate residual stool is seen within the colon. The appendix is not definitively identified. No inflammation within the right lower quadrant is evident. There may be areas of distal colonic diverticulosis. However, no adjacent pericolonic inflammation is identified. No free fluid, loculated fluid collection or free air is present. There is a very small fat containing periumbilical hernia, which is unchanged. Nodes and vessels: No retroperitoneal or mesenteric adenopathy. Aorta and inferior vena cava are normal in caliber. Bones: No acute fracture or suspicious osseous lesion is evident. There appears to be a small hemangioma involving the L4 vertebral body. PELVIS: Genitourinary: Thickening of the wall of the urinary bladder may be exaggerated by incomplete distention. Clinical correlation to exclude cystitis is recommended. The uterus is retroflexed. The previously seen large cystic structure within the left adnexa has resolved or been resected in the interim. Miscellaneous: No inguinal hernias or adenopathy. Bones: No suspicious bony lesions. No vertebral body compression fractures. IMPRESSION: 1. No acute abnormalities are evident within the abdomen or pelvis. 2. Prominence of the wall of the urinary bladder. Please correlate clinically to exclude cystitis. 3. Possible colonic constipation. No bowel obstruction. Dictated by: Rei Nur M.D. on 04/16/2019 at 7:28 MDM Narrative Medical decision making narrative: Patient is chronically neutropenic at this time that is stable. Blood work is otherwise reassuring. Abdominal CT and ultrasound do not show any abnormality. She has been offered Toradol or other pain medications however she declined. This time no identification of abdominal pain or discomfort. I recommended outpatient follow-up. She was agreeable to this. Discharge Plan Departure Patient Disposition: Home Clinical Impression: Abdominal pain Qualifiers: Abdominal location: generalized Qualified Code(s): R10.84 - Generalized abdominal pain Discharge Date/Time: 04/16/19 10:58 Interventions: ED Discharge Assessment Last Done: 04/16/19 10:55 Instructions: DI for Abdominal Pain-Adult Activity Restrictions/Additional Instructions: *You have been diagnosed with abdominal pain *What to do: At this time ultrasound, CT scan and blood work are all reassuring. He may require further outpatient workup *Continue to take medications as directed A Tylenol 650 mg every 4-6 hours if needed for pain *Follow up with your primary care provider in 2-3 days *Return to ER if you should have increasing pain persistent vomiting fever or any new, worsening or concerning symptoms Prescriptions: No Action lorazepam 0.5 mg tablet 0.5 mg PO ONCE PRN (Reason: Anxiety) RF: 0 thyroid (pork) [BASEBALL HAND SEWER Thyroid] 90 mg tablet 90 mg PO DAILY Qty: 90 RF: 3 paroxetine HCl 37.5 mg tablet extended release 24 hr 37.5 mg PO DAILY RF: 0 multivitamin Tablet 1 tab PO DAILY RF: 0 cholecalciferol (vitamin D3) [Vitamin D3] 5,000 unit Tablet 5,000 unit PO DAILY RF: 0 Referrals: Paula Melvin PA-C [Primary Care Provider] -
[2019-04-16 07:37] LABS: Add Manual Diff / Slide Review NO; Basophils Absolute Auto 0 /uL (0-100); Basophils Percent Auto 1.1 % (0-2); Eosinophils Absolute Auto 100 /uL (0-450); Eosinophils Percent Auto 2.1 % (2-4); Hematocrit 42.1 % (36-46); Hemoglobin 14.2 g/dL (12.0-16.0); Lymphocytes Absolute Auto 1800 /uL (1100-4500); Lymphocytes Percent Auto 50.8 % (25-40); Mean Corpuscular HGB Conc 33.8 % (30-36); Mean Corpuscular Hemoglobin 28.9 PG (26-34); Mean Corpuscular Volume 85.4 fL (80-100); Monocytes Absolute Auto 300 /uL (0-900); Monocytes Percent Auto 9.7 % (3-14); Neutrophils Absolute Auto 1300 /uL (1500-7000); Neutrophils Percent Auto 36.3 % (50-75); Platelet Count 206 X10^3/uL (150-400); Red Blood Cell Count 4.93 X10^6/uL (4.0-5.2); Red Cell Distribution Width 12.6 % (11.6-14.8); White Blood Cell Count 3.5 X10^3/uL (4.5-11.0)
[2019-04-16 07:47] LABS: Alanine Aminotransferase 11 IU/L (9-52); Albumin 4.5 g/dL (3.5-5.0); Albumin Globulin Ratio 1.6 (1.0-2.8); Alkaline Phosphatase 69 U/L (38-126); Aspartate Aminotransferase 17 IU/L (14-36); BUN Creatinine Ratio 22.9 (6-22); Blood Urea Nitrogen 16 mg/dL (7-17); Calcium 9.9 mg/dL (8.4-10.2); Carbon Dioxide 28 mmol/L (22-32); Chloride 104 mmol/L (98-107); Estimated Glomerular Filt Rate > 60.0 mL/min (>60); Globulin 2.9 g/dL (1.7-4.1); Glucose 103 mg/dL (80-110); HEMOLYSIS < 15 (0-50); Lipase 66 U/L (23-300); Potassium 3.8 mmol/L (3.4-5.1); Sodium 141 mmol/L (137-145); Total Protein 7.4 g/dL (6.3-8.2)
[2019-04-16 07:56] LABS: Bacteria Urine None Seen; RBC Urine None Seen (0-5/HPF); WBC Urine None Seen (0-5/HPF)
[2019-04-16 08:04] LABS: Culture Indicated Urine Specimen Cultured; Urine Comments Microscopic Normal
--- NOTE | 2019-04-16 08:38 | DI.US.S_ITS ---
PROCEDURE: US ABDOMEN LIMITED INDICATIONS: RUQ PAIN TECHNIQUE: Real-time focused scanning was performed of the abdomen, with image documentation. COMPARISON: None. FINDINGS: Imaged portions of the liver are unremarkable with the exception of increased echogenicity when compared to the right kidney. No obvious liver lesions are evident right kidney is normal in size. There is no hydronephrosis. No shadowing nephrolithiasis or solid renal lesions are appreciated. The gallbladder is measuring within the upper limits of normal in size. There is no gallbladder wall thickening, pericholecystic fluid, or cholelithiasis. The common bile duct is enlarged and measures up to 8 mm in diameter. The pancreas is within normal limits. The abdominal aorta and inferior vena cava are grossly unremarkable. IMPRESSION: 1. No cholelithiasis or evidence of acute cholecystitis. 2. Nonspecific prominence of the common bile duct. If there is clinical concern for choledocholithiasis, MRCP may be helpful for further evaluation. 3. Probable hepatic steatosis. Please correlate clinically to exclude other chronic liver diseases. 4. Unremarkable right kidney. No hydronephrosis or shadowing nephrolithiasis. Dictated by: Rei Nur M.D. on 04/16/2019 at 9:19 Approved by: Rei Nur M.D. on 04/16/2019 at 9:20
[2019-04-16 08:59] VITALS: BP 109/52; PULSE 62; RESP 9; O2SAT 97
[2019-04-16 09:39] VITALS: BP 101/50; PULSE 63; RESP 14; O2SAT 97
[2019-04-16 10:43] VITALS: BP 104/47; PULSE 68; RESP 14; O2SAT 98
[2019-04-16 10:57] VITALS: BP 103/60; PULSE 65; RESP 14; O2SAT 96
== END 2019-04-16 10:58 | disposition home or self-care (01) ==
PROVIDERS: Emergency Provider Emergency Medicine; PCP Physician Assistant
DX: R10.84 Generalized abdominal pain (principal)
CPT/HCPCS: 36415; 36591; 74177; 76705; 80053; 81003; 81015; 83690; 85025; 87086; 96374; 99283; 99285; Q9967

== ENCOUNTER → 2019-08-15 08:43 | Outpatient (CLI) | payer OTHER, SELFPAY ==
[2019-08-15 10:51] LABS: Cholesterol 278 mg/dL (140-199); HDL Cholesterol 53 mg/dL (40-60); LDL Cholesterol Calculated 191 mg/dL (<100); Triglycerides 171 mg/dL (35-150)
[2019-08-15 11:22] LABS: Thyroid Stimulating Hormone < 0.02 uIU/mL (0.47-4.68)
== END ==
PROVIDERS: PCP Physician Assistant; Visit Provider Physician Assistant
DX: E03.9 Hypothyroidism, unspecified (principal); E78.5 Hyperlipidemia, unspecified
CPT/HCPCS: 36415; 80061; 84443

== ENCOUNTER → 2019-09-25 10:14 | Outpatient (CLI) | payer OTHER, SELFPAY ==
[2019-09-25 11:30] LABS: Influenza A - CEPHEID Flu A NEGATIVE (NEGATIVE); Influenza B - CEPHEID Flu B NEGATIVE (NEGATIVE)
== END ==
PROVIDERS: PCP Physician Assistant; Visit Provider Physician Assistant
DX: J02.9 Acute pharyngitis, unspecified (principal); R50.9 Fever, unspecified
CPT/HCPCS: 87070; 87077; 87502

== ENCOUNTER → 2019-10-12 09:35 | Outpatient (CLI) | payer OTHER, SELFPAY ==
[2019-10-12 11:52] LABS: Thyroid Stimulating Hormone 0.05 uIU/mL (0.47-4.68)
== END ==
PROVIDERS: PCP Physician Assistant; Referring Provider Physician Assistant; Visit Provider Physician Assistant
DX: Z51.81 Encounter for therapeutic drug level monitoring (principal); E03.9 Hypothyroidism, unspecified; R79.89 Other specified abnormal findings of blood chemistry
CPT/HCPCS: 36415; 84443

== ENCOUNTER → 2019-11-01 15:12 | Outpatient (CLI) | payer OTHER, SELFPAY ==
[2019-11-01 18:20] LABS: Free T3, Triiodothyronine Free 2.76 pg/mL (2.77-5.27); Free T4, Direct Thyroxine 1.32 ng/dL (0.78-2.19)
[2019-11-01 18:34] LABS: Thyroid Stimulating Hormone 0.09 uIU/mL (0.47-4.68)
== END ==
PROVIDERS: PCP Physician Assistant; Referring Provider Nurse Practitioner; Visit Provider Nurse Practitioner
DX: E03.9 Hypothyroidism, unspecified (principal); G47.00 Insomnia, unspecified; R53.83 Other fatigue; Z79.899 Other long term (current) drug therapy
CPT/HCPCS: 36415; 84439; 84443; 84481

== ENCOUNTER → 2019-11-30 09:22 | Outpatient (CLI) | payer OTHER, SELFPAY ==
[2019-11-30 11:17] LABS: Cholesterol 294 mg/dL (140-199); HDL Cholesterol 53 mg/dL (40-60); LDL Cholesterol Calculated 204 mg/dL (<100); Triglycerides 183 mg/dL (35-150)
[2019-11-30 11:42] LABS: Thyroid Stimulating Hormone 7.27 uIU/mL (0.47-4.68)
[2019-12-01 07:17] LABS: Calcium 9.1 mg/dL (8.7-10.3); Parathyroid Hormone, Intact 32 pg/mL (15-65)
== END ==
PROVIDERS: Nurse Practitioner; Physician Assistant; Referring Provider Nurse Practitioner Family; Visit Provider Nurse Practitioner Family
DX: R94.6 Abnormal results of thyroid function studies (principal); E03.9 Hypothyroidism, unspecified; E78.5 Hyperlipidemia, unspecified
CPT/HCPCS: 36415; 80061; 82310; 83970; 84443

== ENCOUNTER → 2019-12-21 11:38 | Outpatient (CLI) | payer OTHER, SELFPAY ==
[2019-12-21 13:14] LABS: Free T4, Direct Thyroxine 0.85 ng/dL (0.78-2.19)
[2019-12-21 13:28] LABS: Thyroid Stimulating Hormone 5.61 uIU/mL (0.47-4.68)
[2019-12-22 16:08] LABS: Anti Thyroglobulin Antibody <1.0 IU/mL (0.0-0.9); Thyroid Peroxidase Antibodies <9 IU/mL (0-34)
== END ==
PROVIDERS: PCP Family Medicine; Referring Provider Family Medicine; Visit Provider Family Medicine
DX: E03.9 Hypothyroidism, unspecified (principal)
CPT/HCPCS: 36415; 84439; 84443; 84481; 86376; 86800

== ENCOUNTER → 2019-12-23 15:58 | Outpatient (CLI) | payer OTHER, SELFPAY ==
--- NOTE | 2019-12-23 16:01 | DI.US.S_ITS ---
PROCEDURE: US THYROID INDICATIONS: HYPOTHYROID, PALPITATIONS TECHNIQUE: Real-time scanning was performed of the thyroid gland, with image documentation. COMPARISON: None. FINDINGS: Right: Thyroid lobe measures 3.4 x 1.4 x 1.2 cm, and is homogeneous in echotexture. Left: Thyroid lobe measures 4.1 x 1.2 x 0.9 cm, and is homogenous in echotexture. Isthmus: 2 mm thick. No discrete thyroid nodule is seen. IMPRESSION: No thyroid nodules identified Dictated by: Sergio Gutierrez M.D. on 12/23/2019 at 16:53 Approved by: Sergio Gutierrez M.D. on 12/23/2019 at 16:53
== END ==
PROVIDERS: PCP Family Medicine; Referring Provider Family Medicine; Visit Provider Family Medicine
DX: E03.9 Hypothyroidism, unspecified (principal); R00.2 Palpitations
CPT/HCPCS: 76536

== ENCOUNTER → 2020-03-21 16:29 | Outpatient (CLI) | payer OTHER, SELFPAY ==
--- NOTE | 2020-03-21 | DI.MG.S_ITS ---
BILATERAL DIGITAL SCREENING MAMMOGRAM 3D/2D WITH CAD: 03/21/2020 CLINICAL: Routine screening. Comparison is made to exams dated: 03/22/2018 mammogram - [facility], 08/26/2013 mammogram, and 08/03/2012 mammogram - [facility]. There are scattered fibroglandular elements in both breasts. Current study was also evaluated with a Computer Aided Detection (CAD) system. There are benign post operative findings in the right breast. No significant masses, calcifications, or other findings are seen in either breast. There has been no significant interval change. IMPRESSION: There is no mammographic evidence of malignancy. A 1 year screening mammogram is recommended. This exam was interpreted at Station ID: [id number]. NOTE: For mammograms, a report in lay terms will be sent to the patient. Approximately 15% of breast malignancies will not be visualized mammographically. In the management of a palpable breast mass, a negative mammogram must not discourage biopsy of a clinically suspicious lesion. Electronically Signed By: Reena skaggs/[email or web address]:03/21/2020 16:57:27 letter sent: Normal Exam ACR BI-RADS Category 2: Benign Finding(s) [id number]
== END ==
PROVIDERS: PCP Family Medicine; Referring Provider Family Medicine; Visit Provider Family Medicine
DX: Z12.31 Encounter for screening mammogram for malignant neoplasm of breast (principal)
CPT/HCPCS: 77063; 77067

== ENCOUNTER → 2020-09-07 10:43 | Outpatient (CLI) | payer OTHER, SELFPAY ==
[2020-09-07] MEDS: COVID-19 VACC(MODERNA-1)/PF 100 MCG/0.5 ML VIAL IM (10:46)
== END ==
PROVIDERS: PCP Family Medicine; Visit Provider Internal Medicine
DX: Z23 Encounter for immunization (principal)
CPT/HCPCS: 0011A; 91301

== ENCOUNTER → 2020-10-05 09:58 | Outpatient (CLI) | payer OTHER, SELFPAY ==
[2020-10-05] MEDS: COVID-19 VACC #2, MRNA(MOD) 100 MCG/0.5 ML VIAL IM (10:02)
== END ==
PROVIDERS: PCP Family Medicine; Visit Provider Internal Medicine
DX: Z23 Encounter for immunization (principal)
CPT/HCPCS: 0012A; 91301

== ENCOUNTER → 2021-04-04 09:40 | Outpatient (CLI) | payer OTHER, SELFPAY ==
--- NOTE | 2021-04-04 | DI.MRI.S_ITS ---
PROCEDURE: MR BRAIN (IAC) WWO CON INDICATIONS: Meniere's disease, left ear TECHNIQUE: Noncontrast sagittal T1 spin echo, axial FLAIR, axial gradient echo, axial diffusion and ADC through the brain. Axial thin-slice 3D CISS, coronal TruFISP, axial T1 spin echo with fat saturation through the internal auditory canals. After the administration of contrast, thin slice axial and coronal T1 spin echo with fat saturation through the internal auditory canals, and axial T1 spin echo with fat saturation through the brain. COMPARISON: None. FINDINGS: Image quality: Excellent. Cerebellopontine angles: No cerebellopontine angle masses. Inner ear structures appear normally formed. No suspicious enhancement in the internal auditory canal or along the course of the 7th cranial nerve. CSF spaces: Ventricles are normal in size and shape. No extra-axial fluid collections. Basal cisterns are patent. Brain: No intracranial bleeds or mass effects. Courtney-white matter interface is intact. No abnormal intracranial enhancement. Diffusion weighted images demonstrate no acute ischemic insults. Brainstem appears normal. Normal intravascular flow voids are present. Skull and face: Calvarial marrow signal is normal. Orbits appear normal. Sinuses: Sinuses and mastoids are clear. 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 IMPRESSION: No significant abnormality is seen. Specifically, no masses or abnormal enhancement are seen within the cerebellopontine angle cisterns or within the internal auditory canals. Dictated by: Alexy Gill M.D. on 04/04/2021 at 9:41 Transcribed by: ABRAHAM on 04/04/2021 at 9:52 Approved by: Alexy Gill M.D. on 04/04/2021 at 10:33
== END ==
PROVIDERS: PCP Family Medicine; Referring Provider Otolaryngology; Visit Provider Otolaryngology
DX: H81.02 Meniere's disease, left ear (principal)
CPT/HCPCS: 70553

== ENCOUNTER → 2022-12-08 09:39 | Outpatient (CLI) | payer MEDICARE, OTHER, SELFPAY | PROVIDERS: PCP Family Medicine; Visit Provider Nurse Practitioner Family | DX: J02.9 Acute pharyngitis, unspecified (principal) | CPT/HCPCS: 87070 ==

== ENCOUNTER → 2023-02-17 15:27 | Outpatient (CLI) | payer MEDICARE, OTHER, SELFPAY ==
--- NOTE | 2023-02-17 | DI.MG.S_ITS ---
BILATERAL DIGITAL SCREENING MAMMOGRAM 3D/2D WITH CAD: 02/17/2023 CLINICAL: Routine screening. Comparison is made to exams dated: 03/21/2020 mammogram, 03/22/2018 mammogram - [facility], and 08/26/2013 mammogram - [facility]. There are scattered areas of fibroglandular density in both breasts (category b / 25%-50% glandular tissue). Current study was also evaluated with a Computer Aided Detection (CAD) system. There are benign post operative findings in the right breast. No significant masses, calcifications, or other findings are seen in either breast. There has been no significant interval change. IMPRESSION: BENIGN There is no mammographic evidence of malignancy. A 1 year screening mammogram is recommended. Based on the Tyrer Cuzick model (a risk assessment model) the patient's lifetime risk is 4.8% and her 10 year risk is 3.0%. According to the ACR, ACS, and NCCN guidelines, an annual breast MRI exam along with mammogram is recommended if the patient's lifetime risk is 20% or greater. This exam was interpreted at Station ID: [id number]. NOTE: For mammograms, a report in lay terms will be sent to the patient. Approximately 15% of breast malignancies will not be visualized mammographically. In the management of a palpable breast mass, a negative mammogram must not discourage biopsy of a clinically suspicious lesion. Electronically Signed By: Bishnu amezcua/javier:02/20/2023 15:40:43 letter sent: Normal Exam ACR BI-RADS Category 2: Benign Finding(s) 3342F
== END ==
PROVIDERS: PCP Family Medicine; Referring Provider Family Medicine; Visit Provider Family Medicine
DX: Z12.31 Encounter for screening mammogram for malignant neoplasm of breast (principal)
CPT/HCPCS: 77063; 77067

== ENCOUNTER → 2023-02-25 08:53 | Outpatient (CLI) | payer MEDICARE, OTHER, SELFPAY ==
[2023-02-25 11:20] LABS: Add Manual Diff / Slide Review NO; Basophils Absolute Auto 0 /uL (0-100); Basophils Percent Auto 1.3 % (0-2); Eosinophils Absolute Auto 100 /uL (0-450); Eosinophils Percent Auto 2.4 % (2-4); Hematocrit 39.4 % (36-46); Hemoglobin 13.5 g/dL (12.0-16.0); Lymphocytes Absolute Auto 1100 /uL (1100-4500); Mean Corpuscular HGB Conc 34.3 % (30-36); Mean Corpuscular Hemoglobin 30.8 PG (26-34); Mean Corpuscular Volume 89.7 fL (80-100); Monocytes Absolute Auto 300 /uL (0-900); Monocytes Percent Auto 8.5 % (3-14); Neutrophils Absolute Auto 1500 /uL (1500-7000); Neutrophils Percent Auto 49.8 % (50-75); Platelet Count 218 X10^3/uL (150-400); Red Blood Cell Count 4.39 X10^6/uL (4.0-5.2); Red Cell Distribution Width 14.3 % (11.6-14.8)
[2023-02-25 11:42] LABS: Alanine Aminotransferase 12 IU/L (<35); Albumin 4.3 g/dL (3.5-5.0); Albumin Globulin Ratio 1.6 (1.0-2.8); Alkaline Phosphatase 57 U/L (38-126); Aspartate Aminotransferase 20 IU/L (14-36); BUN Creatinine Ratio 18.8 (6-22); Bilirubin Total 0.8 mg/dL (0.2-1.3); Blood Urea Nitrogen 15 mg/dL (7-17); Calcium 9.1 mg/dL (8.4-10.2); Carbon Dioxide 29 mmol/L (22-32); Chloride 105 mmol/L (98-107); Cholesterol 287 mg/dL (140-199); Estimated Glomerular Filt Rate > 60 mL/min (>60); Globulin 2.7 g/dL (1.7-4.1); Glucose 100 mg/dL (80-110); HDL Cholesterol 55 mg/dL (40-60); HEMOLYSIS < 15 (0-50); LDL Cholesterol Calculated 201 mg/dL (<100); Potassium 4.1 mmol/L (3.4-5.1); Sodium 139 mmol/L (137-145); Triglycerides 153 mg/dL (35-150)
[2023-02-25 12:02] LABS: Vitamin D 25 Hydroxy (D3) 37.5 ng/mL (30.0-100.0)
[2023-02-25 12:16] LABS: TSH w/ Reflex to FT4 3.32 uIU/mL (0.47-4.68)
== END ==
PROVIDERS: PCP Family Medicine; Referring Provider Family Medicine; Visit Provider Family Medicine
DX: E78.5 Hyperlipidemia, unspecified (principal); E03.9 Hypothyroidism, unspecified
CPT/HCPCS: 36415; 80053; 80061; 82306; 84443; 85025

== ENCOUNTER → 2023-04-03 12:50 | Outpatient (CLI) | payer MEDICARE, OTHER, SELFPAY ==
--- NOTE | 2023-04-03 12:51 | DI.RAD.S_ITS ---
Bone Density Report Name: CHARITY ORTIZ Age: 72 Sex: Female Ethnicity: White Date of : 1950 Indication: postmenopausal; screening for osteoporosis; prior fracture; Referring Provider: DEWAYNE BOSCH Study: Bone densitometry was performed. Exam Date: April 03, 2023 Accession number: [id number] Bone Density: Region BMD T-score Z-score Classification AP Spine(L1, L2, L4) 0.928 -1.0 1.2 Normal Femoral Neck (Left) 0.639 -1.9 -0.1 Osteopenia Total Hip (Left) 0.797 -1.2 0.4 Osteopenia Femoral Neck (Right) 0.654 -1.8 0.1 Osteopenia Total Hip (Right) 0.826 -1.0 0.6 Normal Total Hip Mean 0.811 -1.1 0.5 Osteopenia World Health Organization criteria for BMD impression classify patients as: Normal (T-score at or above -1.0), Osteopenia (T-score between -1.0 and -2.5), or Osteoporosis (T-score at or below -2.5). 10-year Fracture Risk(1): Major Osteoporotic Fracture 18% Hip Fracture 3.2% Reported Risk Factors: [place] (), Neck BMD=0.639, BMI=25.1, previous fracture (1) FRAX(R) Version 3.08. Fracture probability calculated for an untreated patient. Fracture probability may be lower if the patient has received treatment. Impression: The patient has low bone mass, based on the Left Femoral Neck T-score. The patient has an estimated ten-year risk of hip fracture of 3.2% and an estimated ten-year risk of major fracture of 18%, based on the WHO FRAX algorithm. The patient has risk factors, including: previous fracture. Discussion: BONE DENSITY IS LOW AT ONE OR MORE SKELETAL SITES. THE PATIENT'S BMD AND CLINICAL RISK FACTORS CONTRIBUTE TO THIS PATIENT'S INCREASED RISK OF FRACTURE. This patient's lowest T-score is low at one or more skeletal sites. It meets the World Health Organization's (WHO) criteria for low bone mass (T-score between -1.0 and -2.5). The patient's 10-year risk of hip fracture as calculated by FRAX exceeds the threshold where pharmacological therapy is recommended by the National Osteoporosis Foundation (NOF). However, all treatment decisions require clinical judgment and consideration of individual patient factors, including patient preferences, comorbidities, previous drug use, risk factors not captured in the FRAX model (e.g., frailty, falls, vitamin D deficiency, increased bone turnover, interval significant decline in bone density) and possible under or overestimation of fracture risk by FRAX. The patient should follow a healthful lifestyle (good nutrition with adequate calcium and vitamin D, and appropriate weight-bearing exercise). Follow-Up: Consider a repeat BMD and Vertebral Fracture Assessment (VFA) exam in 2 years or sooner if medically necessary, to reassess this patient's status. Reported by: ROSA CABRERA M.D. on 04/03/2023 1:21:00 PM.
== END ==
PROVIDERS: PCP Family Medicine; Referring Provider Family Medicine; Visit Provider Family Medicine
DX: Z78.0 Asymptomatic menopausal state (principal); Z13.820 Encounter for screening for osteoporosis; M85.852 Other specified disorders of bone density and structure, left thigh; Z87.39 Personal history of other diseases of the musculoskeletal system and connective tissue; Z87.311 Personal history of (healed) other pathological fracture
CPT/HCPCS: 77080

== ENCOUNTER 2023-10-01 09:27 | Day surgery (SDC) | payer MEDICARE, OTHER, SELFPAY ==
[2023-10-01] VITALS (8 sets, daily range): BP systolic 80–108; BP diastolic 40–64; PULSE 51–66; RESP 12–16; TEMP 36.1–36.7; O2SAT 93–98
[2023-10-01] MEDS: LACTATED RINGERS 1,000 ML 42 ML IV (09:56)
--- NOTE | 2023-10-01 10:07 | PM.HP.1 ---
History of Present Illness History of Present Illness Date Patient Seen: 10/01/23 Time Patient Seen: 10:07 Chief complaint: Colonoscopy Narrative: Sydney is a 73-year-old woman who is here for colonoscopy. Her last one was in 2016. She does not not think she has had polyps removed. No family history of colon cancer. [facility]LY [facility] Medical History (Updated 10/01/23 @ 10:08 by Emanuel Odonnell MD) Hx of moderate sun exposure Seborrheic keratoses Vitamin D3 deficiency Hx of osteopenia Near syncope Enlarged thyroid gland Ovarian cyst (06/2018) Kidney stones (06/2018) Rubella Right wrist fracture (2014) Neutropenia (1998) Abnormal Pap smear of cervix (1981) Chicken pox Measles Mumps Osteopenia (1999) Anxiety (1996) Depression (~1997) PTSD (post-traumatic stress disorder) (1996) Abnormal CXR (chest x-ray) (2015) Hypothyroid (~2017) Surgical History History of breast biopsy Anesthesia Status post wrist surgery (10/2014) Family History Father Congestive heart failure Grandfather [place] (myocardial infarction) Grandmother No problems noted. Mother Cancer Hypertension Hyperlipidemia Sister Hepatitis C History of IBS Grandfather No problems noted. Grandmother No problems noted. Social History household members: spouse Smoking Status: Never smoker second hand exposure: Yes (my dad smoked. I sometimes go in homes were clients smoke.) alcohol intake: current substance use type: does not use Meds Home Medications and Allergies Home Medications Medication Instructions Recorded Confirmed Type lorazepam 0.5 mg tablet 1 mg PO .ONCE DAILY PRN Anxiety 02/20/23 10/01/23 History paroxetine HCl 37.5 mg 37.5 mg PO DAILY PTSD 02/20/23 10/01/23 History tablet,extended release 24 hr aspirin 81 mg capsule 81 mg PO DAILY 10/01/23 10/01/23 History clonazepam 0.5 mg tablet 0.5 - 1 mg PO ONCE PM 10/01/23 10/01/23 History ezetimibe 10 mg tablet 10 mg PO QMWF 10/01/23 10/01/23 History Allergies Allergy/AdvReac Type Severity Reaction Status Date / Time ezetimibe [From Zetia] AdvReac Intermediate post Verified 10/01/23 09:41 menopausal vaginal bleeding simvastatin [SIMVASTATIN] AdvReac Unknown muscle Verified 10/01/23 09:41 aches Exam Vital Signs (past 8 hours): - 10/01/23 09:53 Temperature 96.9 F L Pulse Rate 66 Respiratory Rate 16 Blood Pressure 108/64 Pulse Oximetry 95 Oxygen Delivery Method Room Air Oxygen Delivery Method Room Air Const General: healthy appearing Assessment & Plan Assessment and plan (1) Colon cancer screening: Status: Acute Plan We reviewed the risks and benefits of colonoscopy for colon cancer screening and she would like to proceed.
--- NOTE | 2023-10-01 10:35 | P.OP.COLON_ITS ---
Operative Date/Time/Diagnoses Date of procedure: 10/01/23 Time of procedure: 10:35 Pre-op diagnosis: Colon cancer screening Post-op diagnosis: same Procedure & Clinicians Study performed: Colonoscopy Same procedure as scheduled: Yes Surgeon: Emanuel Odonnell Procedure Notes Procedure in detail: Surgeon: Emanuel Odonnell MD Anesthesia: Eli Jain ANCHOR OPERATOR Procedure: The patient was brought to the endoscopy suite, placed in left lateral decubitus position. The patient was connected to monitoring devices. A time-out was performed. Sedation was administered. Once the patient was adequately sedated, a digital rectal exam was performed and was normal. The scope was then inserted and advanced to the cecum where the appendiceal orifice was identified and photographed. The scope was then slowly withdrawn over greater than 6 minutes. The mucosa was thoroughly inspected. No polyps or ot her abnormalities were found. The scope was retroflexed in the rectum. No other abnormalities were seen. The scope was straightened and removed. The patient was awakened and brought to recovery. Scope withdrawal time: 7 minutes Sedation time: 25 minutes EBL: 0 Findings: Normal colon Post-procedure Recommendations: Colonoscopy in 10 years Disposition: PACU
== END 2023-10-01 11:14 | disposition home or self-care (01) ==
PROVIDERS: Surgery; PCP Family Medicine; Referring Provider Surgery; Visit Provider Surgery
PROC: 0DJD8ZZ Inspection of Lower Intestinal Tract, Via Natural or Artificial Opening Endoscopic (ICD-10-PCS; CPT 45378; principal; 2023-10-01 10:15)
DX: Z12.11 Encounter for screening for malignant neoplasm of colon (principal)
CPT/HCPCS: G0121; J2704

== ENCOUNTER → 2023-11-02 07:28 | Outpatient (CLI) | payer MEDICARE, OTHER, SELFPAY ==
[2023-11-02 08:49] LABS: Cholesterol 241 mg/dL (140-199); HDL Cholesterol 61 mg/dL (40-60); LDL Cholesterol Calculated 153 mg/dL (<100); Triglycerides 136 mg/dL (35-150)
== END ==
LOC: LAB 07:29
PROVIDERS: PCP Family Medicine; Referring Provider Family Medicine; Visit Provider Family Medicine
DX: E78.5 Hyperlipidemia, unspecified (principal)
CPT/HCPCS: 36415; 80061

== ENCOUNTER → 2024-01-25 11:20 | Outpatient (CLI) | payer MEDICARE, OTHER, SELFPAY ==
[2024-01-25 12:00] LABS: High Sensitivity CRP - Cardiac < 0.3 mg/L (1.0-3.0)
[2024-01-26 06:52] LABS: Homocysteine 11.6 umol/L (0.0-19.2)
[2024-01-27 14:16] LABS: Cholesterol, Total 265 mg/dL (100-199); HDL-Cholesterol 57 mg/dL (>39); HDL-Particle (Total) 31.7 umol/L (>=30.5); LDL Particle 2350 nmol/L (<1000); LDL Size 20.8 nm (>20.5); LDL-Cholsterol 178 mg/dL (0-99); LP-IR Score 63 (<=45); Small LDL- Particle 1240 nmol/L (<=527); Triglycerides 165 mg/dL (0-149)
== END ==
PROVIDERS: PCP Family Medicine; Referring Provider Family Medicine; Visit Provider Family Medicine
DX: E78.5 Hyperlipidemia, unspecified (principal)
CPT/HCPCS: 36415; 80061; 83090; 83704; 86140

== ENCOUNTER 2024-06-21 15:29 | Emergency (ER) | payer MEDICARE, OTHER, SELFPAY ==
[2024-06-21 15:39] VITALS: BP 125/58; PULSE 68; RESP 18; TEMP 36.7; O2SAT 96; BMI 24.3
--- NOTE | 2024-06-21 16:36 | EKG_ITS ---
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
[2024-06-21] MEDS: MAG HYDROX/ALUMINUM/SIMETH SUS 20 ML, LIDOCAINE VISCOUS 2% 15 ML PO (18:44)
--- NOTE | 2024-06-21 19:15 | PC.NURSE ---
feels like something in her throat, pt is able to eat and drink without any problems, no drooling noted and no muffled voiced
--- NOTE | 2024-06-21 20:05 | ED_ITS ---
HPI - Skin/Abscess/Foreign Bdy General Chief complaint: Skin/Abscess/Foreign Body Stated complaint: feels like somthing stuck in esophagus sent by [facility] Time Seen by Provider: 06/21/24 18:14 Source: patient Mode of arrival: Ambulatory Limitations: no limitations History of Present Illness HPI narrative: 73-year-old female who is here for evaluation of stating that she feels like there is something stuck in her esophagus. She states the symptoms been going on for between 12 and 24 hours. They started yesterday after she ate a salad. She was still able to tolerate her secretions and has been able to eat however today she stated that she felt ?uneasy? about eating. No problems breathing. No history of reflux disease. No vomiting. No abdominal pain. She did receive a GI cocktail prior to my evaluation in at the time of my evaluation she states her symptoms have now resolved. No fevers. Related Data Home Medications Medication Instructions Recorded Confirmed lorazepam 0.5 mg tablet 1 mg PO .ONCE DAILY PRN Anxiety 02/20/23 02/09/24 aspirin 81 mg capsule 81 mg PO DAILY 10/01/23 02/09/24 Ezorb PO 02/02/24 02/09/24 bergamot extract 500 mg capsule mg PO 06/17/24 06/17/24 ([place] Bergamot) digestive enzymes 1 cap PO DAILY 06/17/24 06/17/24 Previous Rx's Medication Instructions Recorded clonazepam 0.5 mg tablet 0.5 - 1 mg (1 - 2 x 0.5 mg) PO 06/17/24 ONCE PM anxiety and sleep #60 tabs paroxetine HCl 37.5 mg 37.5 mg PO DAILY PTSD #90 tabs 06/17/24 tablet,extended release 24 hr sucralfate 100 mg/mL oral 10 ml PO QACHS #414 mL 06/21/24 suspension (Carafate) Allergies Allergy/AdvReac Type Severity Reaction Status Date / Time ezetimibe [From Zetia] AdvReac Intermediate sluggishnes Verified 06/17/24 15:57 s simvastatin [SIMVASTATIN] AdvReac Unknown muscle Verified 06/17/24 15:57 aches Review of Systems Review of Systems ROS Unobtainable: All systems reviewed & are unremarkable except as noted in HPI and below Patient History Medical History Constipation Generalized anxiety disorder with panic attacks Insomnia Medication side effects Osteopenia determined by x-ray Hx of moderate sun exposure Seborrheic keratoses Vitamin D3 deficiency Hx of osteopenia Near syncope Enlarged thyroid gland Ovarian cyst (06/2018) Kidney stones (06/2018) Rubella Right wrist fracture (2014) Neutropenia (1998) Abnormal Pap smear of cervix (1981) Chicken pox Measles Mumps Osteopenia (1999) Anxiety (1996) Depression (~1997) PTSD (post-traumatic stress disorder) (1996) Abnormal CXR (chest x-ray) (2015) Hypothyroid (~2017) Surgical History History of breast biopsy Anesthesia Status post wrist surgery (10/2014) Family History Father Congestive heart failure Grandfather [place] (myocardial infarction) Grandmother No problems noted. Mother Cancer Hypertension Hyperlipidemia Sister Hepatitis C History of IBS Grandfather No problems noted. Grandmother No problems noted. Social History household members: spouse Smoking Status: Never smoker second hand exposure: Yes (my dad smoked. I sometimes go in homes were clients smoke.) alcohol intake: current substance use type: does not use Smoking Status: Never smoker alcohol intake frequency: a few times a month Substance Use Type: does not use Exam Initial Vital Signs Initial Vital Signs: Vital Signs Temperature 98.0 F 06/21/24 15:39 Pulse Rate 68 06/21/24 15:39 Respiratory Rate 18 06/21/24 15:39 Blood Pressure 125/58 L 06/21/24 15:39 Pulse Oximetry 96 06/21/24 15:39 Oxygen Delivery Method Room Air 06/21/24 15:39 Const General: comfortable and No ill appearing HENMT Head: normal to inspection and normocephalic Resp Effort & Inspection: normal respiratory effort Auscultation: clear to auscultation bilaterally Cardio Rate: regular rate Rhythm: regular rhythm GI Inspection: normal to inspection and non-distended Skin General: no rashes or lesions noted Neuro General: patient alert and patient awake Extrem General: capillary refill normal Course Orders Ordered: ED Orders 06/21/24 16:36 EKG-12 Lead Stat Discontinued Medications Al Hydrox/Mg Hydrox/Simethicone 20 ml/ Lidocaine HCl 15 ml 0 ml PO NOW ONE Stop: 06/21/24 18:16 Last Admin: 06/21/24 18:44 Dose: 35 ml Documented By: HIREN Vital Signs Vital signs: Vital Signs - 8 hr 06/21/24 20:11 Temperature 98.7 F Pulse Rate 62 Respiratory Rate 16 Blood Pressure 134/64 Pulse Oximetry 98 Oxygen Delivery Method Room Air MDM - Skin/Abscess/Foreign Bdy ECG Data Attestation: I personally reviewed and interpreted this ECG as follows: Interpretation: Sinus rhythm Ventricular rate is 61 Normal axis Normal QRS Normal QTC No ST T wave changes MDM Narrative Medical decision making narrative: Patient was now asymptomatic after receiving the GI cocktail. No respiratory distress. Is tolerating oral secretions. I have low suspicion that she does have an esophageal foreign body. Given the fact that her symptoms have resolved with a GI cocktail and what she describes I do feel that this is most likely GI related. Plan will be is to put her on Carafate for the next couple days. If her symptoms do not improve she may need a referral to see GI/general surgery to discuss having an upper endoscopy. Patient was given return precautions she expressed understanding and agreement with the plan. Discharge Plan Departure Patient Disposition: Home Clinical Impression: Esophagus disorder Activity Restrictions/Additional Instructions: Recommend that you continue to take all of your medications as directed. Start using the Carafate as directed. Contact your primary doctor for a follow-up. Return to the emergency department for new symptoms Prescriptions: New sucralfate [Carafate] 100 mg/mL suspension 10 ml PO QACHS Qty: 414 2RF No Action lorazepam 0.5 mg tablet 1 mg PO .ONCE DAILY PRN (Reason: Anxiety) Rx Instructions: Take two tablets once daily as needed for anxiety Ezorb PO digestive enzymes Capsule 1 cap PO DAILY Rx Instructions: administer with food; swallow whole; do not crush/chew/dissolve/break/cut [place] Bergamot 500 mg capsule PO paroxetine HCl 37.5 mg tablet extended release 24 hr 37.5 mg PO DAILY Qty: 90 3RF clonazepam 0.5 mg tablet 0.5 - 1 mg PO ONCE PM Qty: 60 5RF aspirin 81 mg Capsule 81 mg PO DAILY Referrals: Iron Jones DO [Primary Care Provider] - Stand Alone Forms: Patient Portal/API/Survey
[2024-06-21 20:11] VITALS: BP 134/64; PULSE 62; RESP 16; TEMP 37.1; O2SAT 98
== END 2024-06-21 20:12 | disposition home or self-care (01) ==
PROVIDERS: Emergency Provider Emergency Medicine; PCP Family Medicine
DX: K22.9 Disease of esophagus, unspecified (principal); R07.9 Chest pain, unspecified
CPT/HCPCS: 93005; 99283

== ENCOUNTER → 2024-09-20 15:50 | Outpatient (CLI) | payer MEDICARE, OTHER, SELFPAY ==
--- NOTE | 2024-09-20 15:51 | DI.MG.S_ITS ---
BILATERAL DIGITAL SCREENING MAMMOGRAM 3D/2D WITH CAD: 09/20/2024 CLINICAL: Routine screening. Comparison is made to exams dated: 03/21/2020 mammogram and 03/22/2018 mammogram - [facility]. There are scattered areas of fibroglandular density (category b / 25%-50% glandular tissue). Current study was also evaluated with a Computer Aided Detection (CAD) system. There are benign post operative findings in the right breast. No significant masses, calcifications, or other findings are seen in either breast. There has been no significant interval change. IMPRESSION: BENIGN There is no mammographic evidence of malignancy. A 1 year screening mammogram is recommended. Based on the Tyrer Cuzick model (a risk assessment model) the patient's lifetime risk is 4.3% and her 10 year risk is 3.2%. According to the ACR, ACS, and NCCN guidelines, an annual breast MRI exam along with mammogram is recommended if the patient's lifetime risk is 20% or greater. This exam was interpreted at Station ID: [id number]. NOTE: For mammograms, a report in lay terms will be sent to the patient. Approximately 15% of breast malignancies will not be visualized mammographically. In the management of a palpable breast mass, a negative mammogram must not discourage biopsy of a clinically suspicious lesion. Electronically Signed By: Edis beltran/javier:09/21/2024 07:54:57 letter sent: Normal Exam ACR BI-RADS Category 2: Benign
== END ==
LOC: MAMMO 15:51
PROVIDERS: PCP Family Medicine; Referring Provider Family Medicine; Visit Provider Family Medicine
DX: Z12.31 Encounter for screening mammogram for malignant neoplasm of breast (principal)
CPT/HCPCS: 77063; 77067

== ENCOUNTER → 2024-09-23 11:25 | Outpatient (CLI) | payer MEDICARE, OTHER, SELFPAY ==
[2024-09-23 13:20] LABS: Cholesterol 237 mg/dL (140-199); HDL Cholesterol 56 mg/dL (40-60); LDL Cholesterol Calculated 147 mg/dL (<100); Triglycerides 170 mg/dL (35-150)
== END ==
LOC: LAB 11:27
PROVIDERS: PCP Family Medicine; Referring Provider Family Medicine; Visit Provider Family Medicine
DX: E78.5 Hyperlipidemia, unspecified (principal)
CPT/HCPCS: 36415; 80061

== ENCOUNTER 2024-11-19 15:06 | Emergency (ER) | payer MEDICARE, OTHER, SELFPAY ==
[2024-11-19] VITALS (10 sets, daily range): BP systolic 121–156; BP diastolic 57–73; PULSE 60–74; RESP 14–24; TEMP 36.8; O2SAT 95–99; BMI 24.7
--- NOTE | 2024-11-19 15:21 | DI.RAD.S_ITS ---
PROCEDURE: XR CHEST 1V INDICATIONS: Possible stroke TECHNIQUE: One view of the chest was acquired. COMPARISON: [facility], CT, CT ANGIO HEAD AND NECK, 11/19/2024, 15:29. [facility], CT, CT STROKE, 11/19/2024, 15:29. FINDINGS: Surgical changes and devices: None. Lungs and pleura: Lungs are clear. No pleural effusions or pneumothorax. Mediastinum: Mediastinal contours appear normal. Heart size is normal. Bones and chest wall: No suspicious bony lesions. Overlying soft tissues appear unremarkable. IMPRESSION: No acute cardiopulmonary abnormality is seen. Dictated by: Alexy Gill M.D. on 11/19/2024 at 15:01 Approved by: Alexy Gill M.D. on 11/19/2024 at 15:03
--- NOTE | 2024-11-19 15:21 | DI.CT.S_ITS ---
PROCEDURE: CT STROKE INDICATIONS: Positive BE-FAST, Stroke symptoms TECHNIQUE: Noncontrast 4.5 mm thick angled axial sections acquired from the foramen magnum to the vertex, with coronal reformats. For radiation dose reduction, the following was used: automated exposure control, adjustment of mA and/or kV according to patient size. COMPARISON: [facility], MR, MR BRAIN (IAC) WWO CON, 04/04/2021, 9:50. FINDINGS: Image quality: Diagnostic. CSF spaces: Basal cisterns are patent. No extra-axial fluid collections. The ventricles are symmetric in size and shape. Brain: No intracranial bleeds or masses. There is cerebral volume loss for age, with resultant ventricular and sulcal prominence. There are periventricular and deep white matter chronic small vessel ischemic changes. There is intracranial internal carotid artery atherosclerosis. Skull and face: Calvarium and visualized facial bones appear intact, without suspicious lesions. Sinuses: Visualized sinuses and mastoids are clear. IMPRESSION: No acute intracranial pathology. No acute intracranial hemorrhage is seen. Note: Case discussed by telephone with Dr. De Paz at 3:45 p.m. [place] time on November 19, 2024. This study fulfills neurological imaging criteria for inclusion or exclusion of acute stroke therapies based on available published neurological guidelines. Dictated by: Alexy Gill M.D. on 11/19/2024 at 14:38 Approved by: Alexy Gill M.D. on 11/19/2024 at 14:45
--- NOTE | 2024-11-19 15:25 | DI.CT.S_ITS ---
PROCEDURE: CT ANGIO HEAD AND NECK INDICATIONS: sudden memory lost TECHNIQUE: After the administration of intravenous contrast, 1 mm thick sections acquired from the aortic arch through the [place]. 3-dimensional sucxccl-krnygmrik-onpmcpjhph (MIP) and/or volume rendering reformats were acquired of the central intracranial vasculature and neck separately. For radiation dose reduction, the following was used: automated exposure control, adjustment of mA and/or kV according to patient size. COMPARISON: [facility], CR, XR CHEST 1V, 11/19/2024, 15:30. [facility], CT, CT STROKE, 11/19/2024, 15:29. [facility], MR, MR BRAIN (IAC) WWO CON, 04/04/2021, 9:50. FINDINGS: Image quality: Limited by bolus timing, with venous contamination. There is artifact associated with the metallic hardware. Artifact from the metallic hardware is reduced by metal reconstruction algorithm. BRAIN: CSF spaces: Ventricles are normal in size and shape. Basal cisterns are patent. No extra-axial fluid collections. Brain: No significant abnormality of the brain can be seen. Skull and face: Calvarium and facial bones appear intact, without suspicious lesions. Orbits appear normal. Sinuses: Sinuses and mastoids are clear. HEAD CT ANGIOGRAPHY: Anterior circulation: Intracranial internal carotid arteries are normal in size and flow. The flow within the paired anterior cerebral arteries is normal and symmetric. Incidental note is made an accessory branch of the anterior cerebral artery system emanating from the anterior communicating artery. The flow within the middle cerebral arteries is normal and symmetric. The anterior communicating artery is seen. No aneurysms are seen. Posterior circulation: Visualized portions of the vertebral arteries demonstrate normal caliber, and join to form a normal appearing basilar artery. There is a prominent left posterior communicating artery seen, with an accompanying diminutive left P1 segment. This is attributed to a type origin of the right posterior cerebral artery, which is considered to be a normal developmental variant of typically no clinical consequence. The flow within the posterior cerebral arteries is normal and symmetric. No aneurysms are seen. NECK CT ANGIOGRAPHY: Carotid system: The great vessels demonstrate a conventional anatomy as they arise from the aortic arch. The origins of the common carotid arteries appear patent. The common carotid arteries demonstrate normal caliber and courses. The bifurcation regions are both widely patent. The internal carotid arteries demonstrate normal calibers and courses. Posterior circulation: The origins of the vertebral arteries both appear widely patent. The more superior extracranial portions of both vertebral arteries also demonstrate normal courses and calibers. The left vertebral artery is dominant to the right. Soft tissues: Visualized neck soft tissues demonstrate no suspicious abnormalities. Bones: No suspicious bony lesions. Visualized cervical spine appears normally aligned. Focal C6-C7 degenerative change is seen. IMPRESSION: No significant intracranial arterial abnormality is seen. No significant abnormality is seen within the arteries of the neck. Additional findings: Dusawa-gb-Uanmyb developmental anomalies. Focal C6-C7 degenerative change Any quantitative measurements of stenosis were performed using NASCET criteria. Dictated by: Alexy Gill M.D. on 11/19/2024 at 15:03 Approved by: Alexy Gill M.D. on 11/19/2024 at 15:05
[2024-11-19 15:35] LABS: Add Manual Diff / Slide Review NO; Basophils Absolute Auto 0 /uL (0-100); Basophils Percent Auto 0.8 % (0-2); Eosinophils Absolute Auto 0 /uL (0-450); Hematocrit 41.1 % (36-46); Hemoglobin 13.6 g/dL (12.0-16.0); Lymphocytes Absolute Auto 1700 /uL (1100-4500); Lymphocytes Percent Auto 39.6 % (25-40); Mean Corpuscular Hemoglobin 29.3 PG (26-34); Mean Corpuscular Volume 88.9 fL (80-100); Monocytes Absolute Auto 400 /uL (0-900); Monocytes Percent Auto 8.4 % (3-14); Neutrophils Absolute Auto 2200 /uL (1500-7000); Neutrophils Percent Auto 50.2 % (50-75); Platelet Count 215 X10^3/uL (150-400); Red Blood Cell Count 4.63 X10^6/uL (4.0-5.2); Red Cell Distribution Width 13.8 % (11.6-14.8); White Blood Cell Count 4.3 X10^3/uL (4.5-11.0)
[2024-11-19 15:40] LABS: INR 0.9 (0.9-1.3); Prothrombin Time 10.7 SECONDS (9.4-12.5)
[2024-11-19 15:42] LABS: PTT Partial Thromboplastin Tim 34 SECONDS (25.1-36.5)
[2024-11-19 15:44] LABS: Alanine Aminotransferase 15 IU/L (<35); Albumin 4.8 g/dL (3.5-5.0); Albumin Globulin Ratio 1.6 (1.0-2.8); Alkaline Phosphatase 65 U/L (38-126); Aspartate Aminotransferase 30 IU/L (14-36); BUN Creatinine Ratio 22.9 (6-22); Bilirubin Total 0.7 mg/dL (0.2-1.3); Blood Urea Nitrogen 19 mg/dL (7-17); Calcium 9.9 mg/dL (8.4-10.2); Carbon Dioxide 26 mmol/L (22-32); Chloride 103 mmol/L (98-107); Creatine Kinase 129 U/L (30-135); Estimated Glomerular Filt Rate > 60 mL/min (>60); Glucose 103 mg/dL (80-110); HEMOLYSIS < 15 (0-50); Magnesium 1.9 mg/dL (1.6-2.3); Potassium 4.1 mmol/L (3.4-5.1); Sodium 139 mmol/L (137-145); Total Protein 7.8 g/dL (6.3-8.2)
--- NOTE | 2024-11-19 15:54 | EKG_ITS ---
[place] [id number] [place] [id number] Test Date: 2024-11-19 Pat Name: Sydney Hernandez Department: [facility] Room: Gender: Female [employer] Rolls: Roseline OGLESBY : 1950 Requested By: Order Number: [id number] Reading MD: Antonio Saravia MD Measurements Intervals [place] Rate: 63 P: 76 CA: 182 QRS: 25 QRSD: 72 T: 18 QT: 422 QTc: 431 Interpretive Statements Normal sinus rhythm Nonspecific ST abnormality Electronically Signed On 11-20-2024 8:51:30 PDT by Antonio Saravia MD
[2024-11-19 15:56] LABS: Troponin I < 0.012 ng/mL (0.01-0.034)
--- NOTE | 2024-11-19 16:22 | ED_ITS ---
HPI - Neuro Symptoms/Deficit General Chief Complaint: Neuro Symptoms/Deficit Stated Complaint: stroke symptoms Time Seen by Provider: 11/19/24 15:24 Source: patient, family (Has been), RN notes reviewed, old records reviewed and other (Friend at bedside) Mode of arrival: Ambulatory Limitations: no limitations History of Present Illness HPI Narrative: 74-year-old female history of dyslipidemia, anxiety who presents with complaint of inability to remember short term events for about a 24 hour. Sudden onset around 12:30pm witnessed by . Presented about hours after onset. Patient was gardening with her had just finished mixing up the soil and then smoothing it back down with some plants which he could not remember plants names, why she had bought them or with the plan was to use them. She can remember things like where the bathroom was appeared her has been was with her he states she did not seem to have any slurred speech it seemed to be more of a memory issue than word-finding. She denies any headache, no vision changes, no numbness tingling or weakness no difficulty with gait or movement. She denies slurred speech. No facial droop per her or her . No chest pain or shortness of breath. She had a little nausea but no vomiting. No loss of consciousness. No falls. Patient is still can not recollect a few things but has been states she seems to be improved as does her friend at bedside. Patient is on paroxetine, clonazepam and takes an aspirin daily. Has had prior wrist repair. States she has adverse reaction to statins recently noticed some weakness her physician told her to stop it yesterday. No tobacco, occasional alcohol but not regularly no recreational drugs. Dr. Jones is her primary care physician. On Anticoagulants: No Related Data Home Medications Medication Instructions Recorded Confirmed lorazepam 0.5 mg tablet 1 mg PO .ONCE DAILY PRN Anxiety 02/20/23 02/09/24 aspirin 81 mg capsule 81 mg PO DAILY 10/01/23 02/09/24 Ezorb PO 02/02/24 02/09/24 bergamot extract 500 mg capsule mg PO 06/17/24 06/17/24 (Bexar Bergamot) digestive enzymes 1 cap PO DAILY 06/17/24 06/17/24 Previous Rx's Medication Instructions Recorded clonazepam 0.5 mg tablet 0.5 - 1 mg (1 - 2 x 0.5 mg) PO 06/17/24 ONCE PM anxiety and sleep #60 tabs paroxetine HCl 37.5 mg 37.5 mg PO DAILY PTSD #90 tabs 06/17/24 tablet,extended release 24 hr sucralfate 100 mg/mL oral 10 ml PO QACHS #414 mL 06/21/24 suspension (Carafate) pravastatin 20 mg tablet 20 mg PO BEDTIME #90 tabs 09/30/24 Allergies Allergy/AdvReac Type Severity Reaction Status Date / Time ezetimibe [From Zetia] AdvReac Intermediate sluggishnes Verified 06/17/24 15:57 s simvastatin [SIMVASTATIN] AdvReac Unknown muscle Verified 06/17/24 15:57 aches Review of Systems Review of Systems ROS Unobtainable: All systems reviewed & are unremarkable except as noted in HPI and below Hematologic/Lymphatic On Anticoagulants: No Patient History Medical History Constipation Generalized anxiety disorder with panic attacks Insomnia Medication side effects Osteopenia determined by x-ray Hx of moderate sun exposure Seborrheic keratoses Vitamin D3 deficiency Hx of osteopenia Near syncope Enlarged thyroid gland Ovarian cyst (06/2018) Kidney stones (06/2018) Rubella Right wrist fracture (2014) Neutropenia (1998) Abnormal Pap smear of cervix (1981) Chicken pox Measles Mumps Osteopenia (1999) Anxiety (1996) Depression (~1997) PTSD (post-traumatic stress disorder) (1996) Abnormal CXR (chest x-ray) (2015) Hypothyroid (~2017) Surgical History History of breast biopsy Anesthesia Status post wrist surgery (10/2014) Family History Father Congestive heart failure Grandfather [place] (myocardial infarction) Grandmother No problems noted. Mother Cancer Hypertension Hyperlipidemia Sister Hepatitis C History of IBS Grandfather No problems noted. Grandmother No problems noted. Social History household members: spouse Smoking Status: Never smoker second hand exposure: Yes (my dad smoked. I sometimes go in homes were clients smoke.) alcohol intake: current substance use type: does not use Smoking Status: Never smoker alcohol intake frequency: a few times a month Exam Narrative Exam Narrative: GEN: well nourished, well appearing female, alert and oriented, patient appears to be in mild distress. HEENT: Atraumatic, pupils are equal round reactive to light, extraocular movements are intact, nares are clear, TMs are clear with no fluid, there is no conjunctival pallor. Throat is clear without any exudates, erythema, tonsillar enlargement or uvular deviation, no facial droop HEART: Regular rate and rhythm without murmur, clicks, rubs. No carotid bruits, pulses are equal in upper and lower extremities LUNGS:Lungs clear to auscultation, no wheezes, rales, crackles, chest moves symmetrically ABD:bowel sounds normal, soft, non-tender, no guarding, rebound, rigidity, no masses noted, no hepatosplenomegaly :No CVA tenderness MSCL: Non-tender, no muscle atrophy, muscles strength 5/5 upper and lower extremities, full range of motion NEURO:CN 2-12 intact, sensation normal, finger nose finger test normal, heel lindquist test normal, no dysarthria or aphasia Initial Vital Signs Initial Vital Signs: Vital Signs Temperature 98.3 F 11/19/24 15:08 Pulse Rate 69 11/19/24 15:08 Respiratory Rate 18 11/19/24 15:08 Blood Pressure 128/58 L 11/19/24 15:08 Pulse Oximetry 95 11/19/24 15:08 Oxygen Delivery Method Room Air 11/19/24 15:08 Scores NIH Stroke Scale Level of Conciousness: Alert, keenly responsive Ask month/age: Answers both questions correctly. Open/close eyes, close hand: Performs both tasks correctly Best gaze horizontal: Normal Visual powell: No visual loss Facial palsy: Normal symetrical movement Left arm drift: No drift for full 10 sec Right arm drift: No drift for full 10 sec Left leg drift: No drift for full 5 sec Right leg drift: No drift for full 5 sec Limb ataxia: Absent Sensory on face/arms/legs: Normal, no sensory loss Best language: No aphasia, normal Dysarthria: Normal Extinction or inattention: No abnormality Total NIH Stroke scale score: 0 Course Orders Ordered: Discontinued Medications Ondansetron HCl (Ondansetron 4 Mg/2 Ml Inj) 4 mg IV NOW PRN PRN Reason: Nausea And Vomiting Ondansetron HCl (Ondansetron 4 Mg Odt) 4 mg SL NOW PRN PRN Reason: Nausea And Vomiting Vital Signs Vital signs: Vital Signs - 8 hr 11/19/24 15:08 11/19/24 15:45 11/19/24 15:48 Temperature 98.3 F Pulse Rate 69 65 74 Respiratory Rate 18 15 16 Blood Pressure 128/58 L Pulse Oximetry 95 99 99 Oxygen Delivery Method Room Air 11/19/24 15:48 11/19/24 16:00 11/19/24 16:01 Temperature Pulse Rate 64 63 Respiratory Rate 19 19 Blood Pressure 156/73 H Pulse Oximetry 99 99 Oxygen Delivery Method 11/19/24 16:01 11/19/24 16:30 11/19/24 16:31 Temperature Pulse Rate 65 64 Respiratory Rate 20 24 Blood Pressure 131/63 Pulse Oximetry 99 98 Oxygen Delivery Method 11/19/24 16:31 11/19/24 17:02 11/19/24 17:03 Temperature Pulse Rate 60 61 Respiratory Rate 14 Blood Pressure 128/60 Pulse Oximetry 95 95 Oxygen Delivery Method 11/19/24 17:03 11/19/24 17:30 11/19/24 17:30 Temperature Pulse Rate 60 Respiratory Rate 14 Blood Pressure 123/58 L 121/57 L Pulse Oximetry 97 Oxygen Delivery Method MDM - Neuro Symptoms/Deficit Lab Data 11/19/24 15:26 11/19/24 15:26 Labs: Lab Results 11/19/24 11/19/24 Range/Units 15:26 16:58 WBC 4.3 L (4.5-11.0) X10^3/uL RBC 4.63 (4.0-5.2) X10^6/uL Hgb 13.6 (12.0-16.0) g/dL Hct 41.1 (36-46) % MCV 88.9 (80-100) fL MCH 29.3 (26-34) PG MCHC 33.0 (30-36) % RDW 13.8 (11.6-14.8) % Plt Count 215 (150-400) X10^3/uL Neut % (Auto) 50.2 (50-75) % Lymph % (Auto) 39.6 (25-40) % Boundary % (Auto) 8.4 (3-14) % Eos % (Auto) 1.0 L (2-4) % Baso % (Auto) 0.8 (0-2) % Neut # (Auto) 2200 (6963-8644) /uL Lymph # (Auto) 1700 (2778-8238) /uL Boundary # (Auto) 400 (0-900) /uL Eos # (Auto) 0 (0-450) /uL Baso # (Auto) 0 (0-100) /uL PT 10.7 (9.4-12.5) SECONDS INR 0.9 (0.9-1.3) APTT 34 (25.1-36.5) SECONDS Sodium 139 (137-145) mmol/L Potassium 4.1 (3.4-5.1) mmol/L Chloride 103 (98-107) mmol/L Carbon Dioxide 26 (22-32) mmol/L BUN 19 H (7-17) mg/dL Creatinine 0.83 (0.52-1.04) mg/dL Estimated GFR > 60 (>60) mL/min BUN/Creatinine Ratio 22.9 H (6-22) Glucose 103 (80-110) mg/dL Calcium 9.9 (8.4-10.2) mg/dL Magnesium 1.9 (1.6-2.3) mg/dL Total Bilirubin 0.7 (0.2-1.3) mg/dL AST 30 (14-36) IU/L ALT 15 (<35) IU/L Alkaline Phosphatase 65 (38-126) U/L Total Creatine Kinase 129 (30-135) U/L Troponin I < 0.012 (0.01-0.034) ng/mL Total Protein 7.8 (6.3-8.2) g/dL Albumin 4.8 (3.5-5.0) g/dL Globulin 3.0 (1.7-4.1) g/dL Albumin/Globulin Ratio 1.6 (1.0-2.8) U Opiates 300ng/mL cut Negative (Negative) Ur Oxycodone Screen Negative (Negative) Urine Methadone Screen Negative (Negative) Ur Barbiturates Screen Negative (Negative) U Tricyclic Antidepress Negative (Negative) Ur Phencyclidine Scrn Negative (Negative) Ur Amphetamines Screen Negative (Negative) U Methamphetamines Scrn Negative (Negative) Ur MDMA Scrn (Ecstasy) Negative (Negative) U Benzodiazepines Scrn Negative (Negative) Urine Cocaine Screen Negative (Negative) U Marijuana (THC) Screen Negative (Negative) Urine pH Normal (Normal) Urine Specific [place] Normal (Normal) Ur Creatinine Normal (Normal) Urine Dip Bedside Urine Glucose Negative Bedside Urine Bilirubin - Negative Bedside Urine Ketone - Negative Urine Specific [place] 1.005 Bedside Urine Occult Blood - Negative Bedside Urine pH 7.0 Bedside Urine Protein - Negative Bedside Urine Urobilinogen - Negative Bedside Urine Nitrite - Negative Bedside Urine Leukocytes - Negative Esterase ECG Data Attestation: I personally reviewed and interpreted this ECG as follows: Interpretation: Sinus rhythm rate of 63 [place] 182 QRS is 72 QTC of [address] elevation depression noted. MDM Narrative Medical decision making narrative: EKG shows no acute change Non-con head CT did not negative for acute change CT angio head and neck shows no significant intracranial abnormality no significant abnormality with the in the arteries of the neck. To stress raise negative for acute change. Labs show persistent leukopenia with a white count of 4.3 hemoglobin of 13 platelets of 215. Coags are negative, BUN 19 otherwise normal electrolytes is sodium 139 creatinine 0.83 glucose is 103, calcium macro normal troponins less than 0.012. 74-year-old female has not sounds like might be episode of transient global amnesia could not remember short term plans but could remember things farther back did not have any other acute neurologic changes has been improving per her and friend at bedside patient states she was little better but not back to normal. Her NIH is 0. This occurred about 2 hours prior to arrival. Based on patient's improvement of symptoms NIH is 0 she was not a candidate for TNK. Not code IR based on negative CTA. Spoke with tele stroke @ Dr. Townsend reviewed states sometimes MRIs are obtained but it was not required, especially with no focal deficits. Patient is not back to baseline we will often offer observation till they are consider seizure disorder of recurrent episodes but a first-time episode and based on patient's symptoms less likely. No other additional recommendations at this time. Rechecked discussed neurology's recommendations and findings from today with patient and her both states she is back to her normal. They both feel comfortable with return home with return precautions. No changes to home medications at this time recommended. We would like for her to follow up with primary care. Discussed return precautions. Discharge Plan Departure Patient Disposition: Home Clinical Impression: Transient global amnesia Instructions: DI for Transient Global Amnesia Activity Restrictions/Additional Instructions: Follow up with your primary care physician for rechecked. Transient global amnesia is not common occur the exact cause is unknown. I did talk with Neurology through tele stroke today at [facility]/. You can continue your regular medications as prescribed. Please return if you have any recurrent episodes or recurrent symptoms, severe headaches, fevers, chest pain or shortness of breath, double vision, vomiting, new numbness tingling or weakness, difficulty with speech or other new or concerning changes. Prescriptions: No Action pravastatin 20 mg tablet 20 mg PO BEDTIME Qty: 90 0RF lorazepam 0.5 mg tablet 1 mg PO .ONCE DAILY PRN (Reason: Anxiety) Rx Instructions: Take two tablets once daily as needed for anxiety Ezorb PO digestive enzymes Capsule 1 cap PO DAILY Rx Instructions: administer with food; swallow whole; do not crush/chew/dissolve/break/cut Bexar Bergamot 500 mg capsule PO paroxetine HCl 37.5 mg tablet extended release 24 hr 37.5 mg PO DAILY Qty: 90 3RF clonazepam 0.5 mg tablet 0.5 - 1 mg PO ONCE PM Qty: 60 5RF aspirin 81 mg Capsule 81 mg PO DAILY sucralfate [Carafate] 100 mg/mL suspension 10 ml PO QACHS Qty: 414 2RF Referrals: Iron Jones DO [Primary Care Provider] - Stand Alone Forms: Patient Portal/API/Survey
[2024-11-19 17:16] LABS: Ur Creatinine Normal (Normal); Ur Specific Gravity Normal (Normal); Urine Amphetamines Negative (Negative); Urine Barbiturates Negative (Negative); Urine Benzodiazepines Negative (Negative); Urine Cocaine Negative (Negative); Urine MDMA Negative (Negative); Urine Methadone Negative (Negative); Urine Methamphetamines Negative (Negative); Urine Opiates Negative (Negative); Urine Oxycodone Negative (Negative); Urine Phencyclidine Negative (Negative); Urine THC Negative (Negative); Urine Tricyclic Antidepressant Negative (Negative); Urine pH Normal (Normal)
== END 2024-11-19 18:09 | disposition home or self-care (01) ==
PROVIDERS: Emergency Provider Emergency Medicine; PCP Family Medicine
DX: G45.4 Transient global amnesia (principal); R29.700 NIHSS score 0
CPT/HCPCS: 36415; 70450; 70496; 70498; 71045; 80053; 80305; 81003; 82550; 83735; 84484; 85025; 85610; 85730; 93005; 93010; 99284; Q9967

== ENCOUNTER → 2025-06-15 14:21 | Outpatient (CLI) | payer MEDICARE, OTHER, SELFPAY ==
--- NOTE | 2025-06-15 14:23 | DI.RAD.S_ITS ---
PROCEDURE: XR BONE LENGTH SCANOGRAM INDICATIONS: bilateral hip pain TECHNIQUE: A single frontal standing view of both lower extremities acquired, with measuring ruler situated between the legs. COMPARISON: None. FINDINGS: Right: Total leg length is 87.77 cm. Left: Total leg length is 88.18 cm. IMPRESSION: Bilateral leg length as above. Dictated by: Mac Duran M.D. on 06/15/2025 at 15:15 Approved by: Mac Duran M.D. on 06/15/2025 at 15:16
== END ==
LOC: RAD 14:22
PROVIDERS: PCP Family Medicine; Referring Provider Family Medicine; Visit Provider Family Medicine
DX: M25.551 Pain in right hip (principal); M21.70 Unequal limb length (acquired), unspecified site; M99.06 Segmental and somatic dysfunction of lower extremity; R29.898 Other symptoms and signs involving the musculoskeletal system
CPT/HCPCS: 77073

== ENCOUNTER → 2025-07-10 09:01 | Outpatient (CLI) | payer MEDICARE, OTHER, SELFPAY ==
--- NOTE | 2025-07-10 09:05 | DI.RAD.S_ITS ---
PROCEDURE: XR HIP W PEL IF DONE RT 2V INDICATIONS: Hip pain TECHNIQUE: AP pelvis with lateral view(s) of the right hip(s). COMPARISON: None. FINDINGS: Bones: No acute fractures or dislocations. Pelvic ring appears intact. No suspicious bony lesions. Minimal degenerative changes of the bilateral hips. Soft tissues: The visualized bowel gas pattern is normal. No suspicious soft tissue calcifications. IMPRESSION: Right hip without acute fracture or dislocation. Minimal degenerative changes of the bilateral hips. Dictated by: Bishnu Cruz M.D. on 07/10/2025 at 16:09 Approved by: Bishnu Cruz M.D. on 07/10/2025 at 16:10
== END ==
PROVIDERS: PCP Family Medicine; Referring Provider Family Medicine; Visit Provider Family Medicine
DX: M25.551 Pain in right hip (principal); R29.898 Other symptoms and signs involving the musculoskeletal system
CPT/HCPCS: 73502

== ENCOUNTER → 2025-07-25 12:13 | Outpatient (CLI) | payer MEDICARE, OTHER, SELFPAY ==
[2025-07-25 12:44] LABS: Hematocrit 38.4 % (36-46); Hemoglobin 12.8 g/dL (12.0-16.0); Mean Corpuscular HGB Conc 33.4 % (30-36); Mean Corpuscular Hemoglobin 28.7 PG (26-34); Mean Corpuscular Volume 85.8 fL (80-100); Platelet Count 211 X10^3/uL (150-400)
[2025-07-25 13:02] LABS: Cholesterol 270 mg/dL (140-199); HDL Cholesterol 67 mg/dL (40-60); Triglycerides 151 mg/dL (35-150)
[2025-07-25 14:17] LABS: Vitamin D 25 Hydroxy (D3) 25.7 ng/mL (30.0-100.0)
== END ==
PROVIDERS: PCP Family Medicine; Referring Provider Family Medicine; Visit Provider Family Medicine
DX: E78.5 Hyperlipidemia, unspecified (principal); M85.80 Other specified disorders of bone density and structure, unspecified site; D72.810 Lymphocytopenia; E55.9 Vitamin D deficiency, unspecified
CPT/HCPCS: 36415; 80061; 82306; 85027